=== PATIENT | female | born 1940 | race Caucasian/White ===

== ENCOUNTER → 2016-09-29 | Outpatient (CLI) | payer MEDICARE ==
[2014-06-15 08:53] VITALS: BP 179/74
--- NOTE | 2016-09-29 09:00 | RAD ---
DATE: 09/29/2016 EXAM: DIGITAL SCREEN BILAT W/CAD HISTORY: Screening COMPARISON: One year earlier This study was interpreted with the benefit of Computerized Aided Detection (CAD). FINDINGS: Breast Density: FATTY The Breast Parenchyma is primarily fatty replaced. Breast parenchyma level density A.. There has been little change in the appearance of the breasts compared to the previous exam IMPRESSION: Benign finding BI-RADS CATEGORY: 2 BENIGN FINDING(S) RECOMMENDED FOLLOW-UP: 12M 12 MONTH FOLLOW-UP PQRS compliance statement: Patient information was entered into a reminder system with a target due date 09/29/2017 for the next mammogram. Mammography is a sensitive method for finding small breast cancers, but it does not detect them all and is not a substitute for careful clinical examination. A negative mammogram does not negate a clinically suspicious finding and should not result in delay in biopsying a clinically suspicious abnormality. "Our facility is accredited by the [employer] Mammography Program."
== END | disposition home or self-care (01) ==
LOC: MAMMO 07:59
PROVIDERS: ATTEND Family Medicine
DX: Z12.31 Encounter for screening mammogram for malignant neoplasm of breast (principal)
CPT/HCPCS: G0202; 77067

== ENCOUNTER → 2017-10-03 | Outpatient (CLI) | payer MEDICARE | END | disposition home or self-care (01) | LOC: MAMMO 08:09 | DX: Z12.31 Encounter for screening mammogram for malignant neoplasm of breast (principal); I10 Essential (primary) hypertension | CPT/HCPCS: 77063; 77067 ==

== ENCOUNTER 2018-04-06 08:47 | Observation (INO) | payer MEDICARE ==
[~2018-04-06] VITALS: Ht 167.6 cm; Wt 76.2 kg
--- NOTE | 2018-04-06 09:36 | PHYS DOC ---
Past Medical History Past Medical History: Diabetes-Type II, Hypertension Past Surgical History: Hysterectomy Additional Information: nonsmoker Alcohol Use: None Drug Use: None Adult General Chief Complaint Chief Complaint: dizziness HPI HPI 77-year-old female presenting to the emergency department today when she woke up this morning around 5 AM and woke up with the symptoms that she veers to the left when she is walking. Last known well was when she went to bed last night. She denies weakness of the arms or legs slurred speech vision changes that will vision or facial asymmetry. Her symptoms come and go. They're worse when she walks and improved when she rests. Review of systems is negative for abdominal pain vomiting headache neck pain chest pain or shortness of breath. She reports falling a few weeks ago. She reports she injured her left side of her chest but reports this is improving. All other review of systems is negative unless otherwise noted in history of present illness. ED course: 77-year-old female presenting the emergency department today with vertigo. On arrival she is saturating well on room air. Pulse is within normal limits. Blood pressure is elevated. She reports not taking her blood pressure this morning. Normal neurologic exam. EKG head CT and blood work obtained. EKG obtained and reviewed by myself shows sinus tachycardia. ST segments congruent. Not suggestive of ACS. White blood cell count within normal limits. Chemistry panel unremarkable. Glucose within normal limits. Urine shows urinary tract infection. We will admit the patient. We'll give her IV antibiotics. Head CT is negative for acute pathology. I spoke to dr Manzano who accepts the pt for admission. basic bridge orders placed. Review of Systems Review of Systems SEE ABOVE. Current Medications Current Medications Current Medications Medications (Trade) Dose Ordered Sig/Valerie Start Time Stop Time Status Last Admin Dose Admin Ceftriaxone Sodium (Rocephin) 1 gm 1X ONCE 04/06/18 11:15 04/06/18 11:16 DC 04/06/18 11:20 1 GM Info (CONTRAST GIVEN -- Rx MONITORING) 1 each PRN DAILY PRN 04/06/18 10:15 04/08/18 10:14 Iohexol (Omnipaque 350 Mg/ml) 90 ml 1X ONCE 04/06/18 10:15 04/06/18 10:16 DC 04/06/18 10:37 90 ML Labetalol HCl (Normodyne Iv Push) 10 mg 1X ONCE 04/06/18 11:00 04/06/18 11:01 DC 04/06/18 11:20 10 MG Sodium Chloride 500 ml @ 500 mls/hr 1X ONCE 04/06/18 10:00 04/06/18 10:59 DC 04/06/18 10:00 500 MLS/HR Allergies Allergies Allergies Coded Allergies Type Severity Reaction Last Updated Verified No Known Drug Allergies 06/15/14 No Physical Exam Physical Exam SEE ABOVE Constitutional: Well developed, well nourished, no acute distress, non-toxic appearance. HENT: Normocephalic, atraumatic, bilateral external ears normal, oropharynx moist, no oral exudates, nose normal. Eyes: PERRLA, EOMI, conjunctiva normal, no discharge. [] Neck: Normal range of motion, no tenderness, supple, no stridor. Cardiovascular:Heart rate regular rhythm, no murmur [] Lungs & Thorax: Bilateral breath sounds clear to auscultation Abdomen: Bowel sounds normal, soft, no tenderness, no masses, no pulsatile masses. Skin: Warm, dry, no erythema, no rash. [] Back: No tenderness, no CVA tenderness. [] Extremities: No tenderness, no cyanosis, no clubbing, ROM intact, no edema. [] Neurologic: Mental status: Awake oriented and alert x3 Cranial nerves: Extraocular movements intact, eyebrows daiana bilaterally, smile symmetric, uvula elevation nl, shoulder shrug intact bilaterally, tongue protrusion normal no nystagmus on lateral or vertical gaze. DTRs: 2+ Sensation: equal and normal in all extremities Strength: 5/5 in upper and lower extremities bilaterally FTN wnl bilaterally. no dysdiadochokinesia. Psychologic: Affect normal, judgement normal, mood normal. [] Current Patient Data Vital Signs Vital Signs Date Time Temp Pulse Resp B/P (MAP) Pulse Ox O2 Delivery O2 Flow Rate FiO2 04/06/18 11:29 98 16 166/77 (106) 95 04/06/18 11:09 Room Air 04/06/18 08:58 97.8 97.8 Lab Values Laboratory Tests Test 04/06/18 09:10 04/06/18 09:14 04/06/18 09:50 Urine Collection Type Unknown Urine Color Yellow Urine Clarity Clear Urine pH 5.5 Urine Specific [place] 1.020 Urine Protein Negative mg/dL (NEG-TRACE) Urine Glucose (UA) Negative mg/dL (NEG) Urine Ketones (Stick) Negative mg/dL (NEG) Urine Blood Negative (NEG) Urine Nitrite Positive (NEG) Urine Bilirubin Negative (NEG) Urine Urobilinogen Dipstick 0.2 mg/dL (0.2 mg/dL) Urine Leukocyte Esterase Large (NEG) Urine RBC 0 /HPF (0-2) Urine WBC >40 /HPF (0-4) Urine Squamous Epithelial Cells Few /LPF Urine Bacteria Many /HPF (0-FEW) Glucose (Fingerstick) 176 mg/dL (70-99) H White Blood Count 8.9 x10^3/uL (4.0-11.0) Red Blood Count 4.20 x10^6/uL (3.50-5.40) Hemoglobin 12.7 g/dL (12.0-15.5) Hematocrit 38.7 % (36.0-47.0) Mean Corpuscular Volume 92 fL (79-100) Mean Corpuscular Hemoglobin 30 pg (25-35) Mean Corpuscular Hemoglobin Concent 33 g/dL (31-37) Red Cell Distribution Width 15.5 % (11.5-14.5) H Platelet Count 177 x10^3/uL (140-400) Neutrophils (%) (Auto) 72 % (31-73) Lymphocytes (%) (Auto) 21 % (24-48) L Monocytes (%) (Auto) 5 % (0-9) Eosinophils (%) (Auto) 1 % (0-3) Basophils (%) (Auto) 1 % (0-3) Neutrophils # (Auto) 6.4 x10^3uL (1.8-7.7) Lymphocytes # (Auto) 1.8 x10^3/uL (1.0-4.8) Monocytes # (Auto) 0.5 x10^3/uL (0.0-1.1) Eosinophils # (Auto) 0.1 x10^3/uL (0.0-0.7) Basophils # (Auto) 0.1 x10^3/uL (0.0-0.2) Sodium Level 137 mmol/L (136-145) Potassium Level 4.1 mmol/L (3.5-5.1) Chloride Level 98 mmol/L (98-107) Carbon Dioxide Level 24 mmol/L (21-32) Anion Gap 15 (6-14) H Blood Urea Nitrogen 16 mg/dL (7-20) Creatinine 0.8 mg/dL (0.6-1.0) Estimated GFR (Cockcroft-Gault) 69.4 BUN/Creatinine Ratio 20 (6-20) Glucose Level 180 mg/dL (70-99) H Calcium Level 9.9 mg/dL (8.5-10.1) Total Bilirubin 0.4 mg/dL (0.2-1.0) Aspartate Amino Transferase (AST) 55 U/L (15-37) H Alanine Aminotransferase (ALT) 61 U/L (14-59) H Alkaline Phosphatase 115 U/L (46-116) Total Protein 7.1 g/dL (6.4-8.2) Albumin 3.6 g/dL (3.4-5.0) Albumin/Globulin Ratio 1.0 (1.0-1.7) Laboratory Tests 04/06/18 09:50 Laboratory Tests 04/06/18 09:50 EKG EKG [] Radiology/Procedures Radiology/Procedures [] Course & Med Decision Making Course & Med Decision Making Pertinent Labs and Imaging studies reviewed. (See chart for details) [] Dragon Disclaimer Dragon Disclaimer This electronic medical record was generated, in whole or in part, using a voice recognition dictation system. Departure Departure Impression: Primary Impression: Vertigo Disposition: HOME, SELF-CARE Condition: STABLE Referrals: JUAN BROWN MD (PCP) ZULEMA TOMLINSON MD Apr 06, 2018 09:36
[2018-04-06 09:55] LABS: BILIRUBIN,URINE NEGATIVE (NEG); CLARITY,URINE CLEAR; COLOR,URINE YELLOW; NITRITE,URINE POSITIVE (NEG); PH,URINE 5.5; PROTEIN,URINE NEGATIVE (NEG-TRACE); UROBILINOGEN,URINE 0.2 mg/dL (0.2 mg/dL)
[2018-04-06] MEDS ORDERED: IV NORMAL SALINE 500ML BAG 500 ML IV ONE (10:00)
[2018-04-06 10:07] LABS: BACTERIA,URINE MANY /HPF (0-FEW); RBC,URINE 0 /HPF (0-2); SQUAMOUS EPITHELIAL CELL,UR FEW /LPF; WBC,URINE >40 /HPF (0-4)
[2018-04-06] MEDS ORDERED: IOHEXOL 350 MG/ML 100 ML VIAL. IV ONE (10:15)
[2018-04-06] MEDS ORDERED: CONTRAST GIVEN. MC PRN (10:15)
[2018-04-06 10:19] LABS: BASO # 0.1 x10^3/uL (0.0-0.2); BASO % 1 % (0-3); EOS # 0.1 x10^3/uL (0.0-0.7); EOS % 1 % (0-3); HEMATOCRIT 38.7 % (36.0-47.0); HEMOGLOBIN 12.7 g/dL (12.0-15.5); LYMPH # 1.8 x10^3/uL (1.0-4.8); LYMPH % 21 % (24-48); MEAN CORPUSCULAR HEMOGLOBIN 30 pg (25-35); MEAN CORPUSCULAR HGB CONC 33 g/dL (31-37); MEAN CORPUSCULAR VOLUME 92 fL (79-100); MONO # 0.5 x10^3/uL (0.0-1.1); MONO % 5 % (0-9); NEUT # 6.4 x10^3uL (1.8-7.7); NEUT % 72 % (31-73); PLATELET COUNT 177 x10^3/uL (140-400); RED CELL DISTRIBUTION WIDTH 15.5 % (11.5-14.5); WHITE BLOOD COUNT 8.9 x10^3/uL (4.0-11.0)
[2018-04-06 10:26] LABS: CALCIUM 9.9 mg/dL (8.5-10.1); CREATININE 0.8 mg/dL (0.6-1.0); GFR 69.4; POTASSIUM 4.1 mmol/L (3.5-5.1)
[2018-04-06 10:31] LABS: ALBUMIN 3.6 g/dL (3.4-5.0); TOTAL BILIRUBIN 0.4 mg/dL (0.2-1.0); TOTAL PROTEIN 7.1 g/dL (6.4-8.2)
--- NOTE | 2018-04-06 10:51 | EKG ---
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
[2018-04-06] MEDS ORDERED: LABETALOL 20 MG/4 ML DISP.SYRIN. IVP ONE (11:00)
[2018-04-06] MEDS ORDERED: cefTRIAXone IV Push 1 GM VIAL. IVP ONE (11:15)
--- NOTE | 2018-04-06 11:29 | RAD ---
CT HEAD INDICATION: DIZZY, UNSTEADY, LEANING TO ONE SIDE COMPARISON: None Available. Exposure: One or more of the following individualized dose reduction techniques were utilized for this examination: 1. Automated exposure control 2. Adjustment of the mA and/or kV according to patient size 3. Use of iterative reconstruction technique TECHNIQUE: 5 mm contiguous axial images were obtained from the skull base to the vertex in both bone and soft tissue algorithm. FINDINGS: No abnormal attenuation within the brain parenchyma. No evidence of acute intracranial hemorrhage. No extra-axial fluid collections. No mass effect or midline shift. Ventricular size is appropriate. Basal cisterns are patent. No fractures identified.Phillips-white differentiation is preserved.Globes and orbits are within normal limits. Moderate mucosal thickening left maxillary sinus. IMPRESSION: 1. No acute intracranial findings. 2. Moderate mucosal thickening left maxillary sinus. Electronically signed by: Puma Caldwell MD (04/06/2018 11:25 AM) [id number]
--- NOTE | 2018-04-06 11:39 | RAD ---
CTA of the head and neck with contrast, 04/06/2018: HISTORY: Dizziness, unsteadiness Multidetector CT imaging was performed following an IV bolus injection of iodinated contrast material. Multiplanar reconstructions were produced including MIP images and 3-D volume rendered reconstructions. The right common carotid artery is widely patent. There is moderate calcific plaquing at the right carotid bifurcation with approximately 50 percent diameter narrowing of the right internal carotid artery origin. The right internal carotid artery in the upper neck and at the skull base is widely patent. There is calcific plaquing involving its cavernous segment without evidence of high-grade stenosis. The right anterior cerebral and middle cerebral arteries and their major branches are unremarkable. The left common carotid artery is widely patent. There is moderate calcific plaquing at the left carotid bifurcation with approximate 60 percent diameter narrowing at its origin. There is mild kinking of the proximal left internal carotid artery just superior to this level.. There is moderate calcific plaquing involving its cavernous segment without evidence of high-grade stenosis. The left middle cerebral and anterior cerebral arteries and their major branches are unremarkable. The proximal left vertebral artery is partially obscured by artifacts arising from dense vascular contrast at the thoracic inlet. Both vertebral arteries in the neck are widely patent with mild dominance of the right vertebral artery. There is mild calcific plaquing in the distal right vertebral artery. The basilar artery is unremarkable. The posterior cerebral arteries show no abnormality. Incidental note is made of moderate mucosal thickening and free fluid in the left maxillary sinus. There is moderate mucosal thickening in the left sphenoid sinus IMPRESSION: 1. Moderate calcific plaquing at both carotid bifurcations with approximately 60 percent diameter narrowing of the left internal carotid artery origin and 50 percent diameter narrowing of the right internal carotid artery origin. 2. Calcific plaquing involving the cavernous segments of the distal internal carotid arteries without evidence of high-grade stenosis. 3. No evidence of occlusion or high-grade stenosis of the major intracranial arteries. 4. Left maxillary and sphenoid sinusitis. PQRS Compliance Statement: One or more of the following individualized dose reduction techniques were utilized for this examination: 1. Automated exposure control 2. Adjustment of the mA and/or kV according to patient size 3. Use of iterative reconstruction technique Electronically signed by: Parvez Goins MD (04/06/2018 11:35 AM) [facility]
[2018-04-06] MEDS ORDERED: MORPHINE SULFATE 4 MG/ML VIAL. IV PRN (11:45)
[2018-04-06] MEDS ORDERED: ONDANSETRON PF 4 MG/2 ML VIAL. IV PRN (11:45)
--- NOTE | 2018-04-06 13:43 | PDOC2 ---
NEUROLOGY CONSULT Date of Admission Date of Admission DATE: 04/06/18 TIME: 13:36 Reason for Consult Reason for Consult: Dizziness Referring Physician Referring Physician: Dr. Manzano PCP: Dr. Barahona Source Source: Caregiver, Chart review, Patient History of Present Illness History of Present Illness The patient is a 77-year-old right-handed female who woke up about 5 AM and noticed that she was veering to the left when she walked. There was no vertigo and she knows the term because she had an inner ear infection about 20 years ago with true vertigo. She does have chronic tinnitus and hearing loss. There is no diplopia, dysphagia, dysarthria, numbness, weakness, and she has not figured out any inciting or mitigating features. Past Medical History Cardiovascular: HTN GI: GERD ENT: Other (inner ear infection 20 years ago) Endocrine: Diabetes Family History Family History: Cancer Social History Social History , no tobacco or alcohol Current Medications Current Medications Current Medications Sodium Chloride 500 ml @ 500 mls/hr 1X ONCE IV Last administered on at 10:00; Start 04/06/18 at 10:00; Stop 04/06/18 at 10:59; Status DC Iohexol (Omnipaque 350 Mg/ml) 90 ml 1X ONCE IV Last administered on 04/06/18at 10:37; Start 04/06/18 at 10:15; Stop 04/06/18 at 10:16; Status DC Info (CONTRAST GIVEN -- Rx MONITORING) 1 each PRN DAILY PRN MC SEE COMMENTS; Start 04/06/18 at 10:15; Stop 04/08/18 at 10:14 Labetalol HCl (Normodyne Iv Push) 10 mg 1X ONCE IVP Last administered on at 11:20; Start 04/06/18 at 11:00; Stop 04/06/18 at 11:01; Status DC Ceftriaxone Sodium (Rocephin) 1 gm 1X ONCE IVP Last administered on 04/06/18at 11:20; Start 04/06/18 at 11:15; Stop 04/06/18 at 11:16; Status DC Ondansetron HCl (Zofran) 4 mg PRN Q8HRS PRN IV NAUSEA/VOMITING; Start 04/06/18 at 11:45; Stop 04/07/18 at 11:44 Morphine Sulfate (Morphine Sulfate) 2 mg PRN Q2HR PRN IV PAIN Last administered on 04/06/18at 13:19; Start 04/06/18 at 11:45; Stop 04/07/18 at 11:44 Allergies Allergies: Coded Allergies: No Known Drug Allergies (Unverified , 06/15/14) ROS Review of System Negative for fever, chills, weight loss, shortness of breath, chest pain, indigestion, hematochezia, melena, and dysuria. Full 14-point review of systems is negative. Physical Exam Physical Examination General: Well-developed, well-nourished white female in no acute distress HEENT: Normocephalic and�atraumatic. Tympanic membranes clear.�Temporal arteries� pulsatile and nontender. Neck: Supple without bruit, no meningismus� Musculoskeletal: Stability:�see neurologic. Gait exam:�see neurologic. Tone:�see neurologic.� Strength:�see neurologic.� Neurological: Mental Status:�intact, orientation, memory, attention span/concentration, language, fund of knowledge normal. Cranial Nerves:�Pupils equal and reactive to light, extraocular movements are�intact, visual coffey are full to confrontation. Facial sensation is normal. There is no facial asymmetry. Vestibulo-ocular reflex is intact. Palate elevates and tongue protrudes in midline. All other cranial related problems are negative except as mentioned before.�Reflexes:�2+ and symmetric with flexor plantar responses. Motor:�5/5 strength with normal tone and bulk. Coordination:�Finger-nose finger and heel-to -delacruz testing are normal. Rapid alternating movements and fine finger movements are intact. Gait:�Unsteady, does tend to fall to the left. Sensory:�Normal pinprick, vibration, light touch, proprioception.� Vitals VITALS Vital Signs Date Time Temp Pulse Resp B/P (MAP) Pulse Ox O2 Delivery O2 Flow Rate FiO2 04/06/18 13:19 16 98 Room Air 04/06/18 11:20 110 173/79 04/06/18 08:58 97.8 97.8 Labs Labs Laboratory Tests Test 04/06/18 09:10 04/06/18 09:14 04/06/18 09:50 Urine Collection Type Unknown Urine Color Yellow Urine Clarity Clear Urine pH 5.5 Urine Specific [place] 1.020 Urine Protein Negative mg/dL (NEG-TRACE) Urine Glucose (UA) Negative mg/dL (NEG) Urine Ketones (Stick) Negative mg/dL (NEG) Urine Blood Negative (NEG) Urine Nitrite Positive (NEG) Urine Bilirubin Negative (NEG) Urine Urobilinogen Dipstick 0.2 mg/dL (0.2 mg/dL) Urine Leukocyte Esterase Large (NEG) Urine RBC 0 /HPF (0-2) Urine WBC >40 /HPF (0-4) Urine Squamous Epithelial Cells Few /LPF Urine Bacteria Many /HPF (0-FEW) Glucose (Fingerstick) 176 mg/dL (70-99) White Blood Count 8.9 x10^3/uL (4.0-11.0) Red Blood Count 4.20 x10^6/uL (3.50-5.40) Hemoglobin 12.7 g/dL (12.0-15.5) Hematocrit 38.7 % (36.0-47.0) Mean Corpuscular Volume 92 fL (79-100) Mean Corpuscular Hemoglobin 30 pg (25-35) Mean Corpuscular Hemoglobin Concent 33 g/dL (31-37) Red Cell Distribution Width 15.5 % (11.5-14.5) Platelet Count 177 x10^3/uL (140-400) Neutrophils (%) (Auto) 72 % (31-73) Lymphocytes (%) (Auto) 21 % (24-48) Monocytes (%) (Auto) 5 % (0-9) Eosinophils (%) (Auto) 1 % (0-3) Basophils (%) (Auto) 1 % (0-3) Neutrophils # (Auto) 6.4 x10^3uL (1.8-7.7) Lymphocytes # (Auto) 1.8 x10^3/uL (1.0-4.8) Monocytes # (Auto) 0.5 x10^3/uL (0.0-1.1) Eosinophils # (Auto) 0.1 x10^3/uL (0.0-0.7) Basophils # (Auto) 0.1 x10^3/uL (0.0-0.2) Sodium Level 137 mmol/L (136-145) Potassium Level 4.1 mmol/L (3.5-5.1) Chloride Level 98 mmol/L (98-107) Carbon Dioxide Level 24 mmol/L (21-32) Anion Gap 15 (6-14) Blood Urea Nitrogen 16 mg/dL (7-20) Creatinine 0.8 mg/dL (0.6-1.0) Estimated GFR (Cockcroft-Gault) 69.4 BUN/Creatinine Ratio 20 (6-20) Glucose Level 180 mg/dL (70-99) Calcium Level 9.9 mg/dL (8.5-10.1) Total Bilirubin 0.4 mg/dL (0.2-1.0) Aspartate Amino Transf (AST/SGOT) 55 U/L (15-37) Alanine Aminotransferase (ALT/SGPT) 61 U/L (14-59) Alkaline Phosphatase 115 U/L (46-116) Total Protein 7.1 g/dL (6.4-8.2) Albumin 3.6 g/dL (3.4-5.0) Albumin/Globulin Ratio 1.0 (1.0-1.7) Laboratory Tests Test 04/06/18 09:10 04/06/18 09:14 04/06/18 09:50 Urine Collection Type Unknown Urine Color Yellow Urine Clarity Clear Urine pH 5.5 Urine Specific [place] 1.020 Urine Protein Negative mg/dL (NEG-TRACE) Urine Glucose (UA) Negative mg/dL (NEG) Urine Ketones (Stick) Negative mg/dL (NEG) Urine Blood Negative (NEG) Urine Nitrite Positive (NEG) Urine Bilirubin Negative (NEG) Urine Urobilinogen Dipstick 0.2 mg/dL (0.2 mg/dL) Urine Leukocyte Esterase Large (NEG) Urine RBC 0 /HPF (0-2) Urine WBC >40 /HPF (0-4) Urine Squamous Epithelial Cells Few /LPF Urine Bacteria Many /HPF (0-FEW) Glucose (Fingerstick) 176 mg/dL (70-99) White Blood Count 8.9 x10^3/uL (4.0-11.0) Red Blood Count 4.20 x10^6/uL (3.50-5.40) Hemoglobin 12.7 g/dL (12.0-15.5) Hematocrit 38.7 % (36.0-47.0) Mean Corpuscular Volume 92 fL (79-100) Mean Corpuscular Hemoglobin 30 pg (25-35) Mean Corpuscular Hemoglobin Concent 33 g/dL (31-37) Red Cell Distribution Width 15.5 % (11.5-14.5) Platelet Count 177 x10^3/uL (140-400) Neutrophils (%) (Auto) 72 % (31-73) Lymphocytes (%) (Auto) 21 % (24-48) Monocytes (%) (Auto) 5 % (0-9) Eosinophils (%) (Auto) 1 % (0-3) Basophils (%) (Auto) 1 % (0-3) Neutrophils # (Auto) 6.4 x10^3uL (1.8-7.7) Lymphocytes # (Auto) 1.8 x10^3/uL (1.0-4.8) Monocytes # (Auto) 0.5 x10^3/uL (0.0-1.1) Eosinophils # (Auto) 0.1 x10^3/uL (0.0-0.7) Basophils # (Auto) 0.1 x10^3/uL (0.0-0.2) Sodium Level 137 mmol/L (136-145) Potassium Level 4.1 mmol/L (3.5-5.1) Chloride Level 98 mmol/L (98-107) Carbon Dioxide Level 24 mmol/L (21-32) Anion Gap 15 (6-14) Blood Urea Nitrogen 16 mg/dL (7-20) Creatinine 0.8 mg/dL (0.6-1.0) Estimated GFR (Cockcroft-Gault) 69.4 BUN/Creatinine Ratio 20 (6-20) Glucose Level 180 mg/dL (70-99) Calcium Level 9.9 mg/dL (8.5-10.1) Total Bilirubin 0.4 mg/dL (0.2-1.0) Aspartate Amino Transf (AST/SGOT) 55 U/L (15-37) Alanine Aminotransferase (ALT/SGPT) 61 U/L (14-59) Alkaline Phosphatase 115 U/L (46-116) Total Protein 7.1 g/dL (6.4-8.2) Albumin 3.6 g/dL (3.4-5.0) Albumin/Globulin Ratio 1.0 (1.0-1.7) Images Images CT HEAD No abnormal attenuation within the brain parenchyma. No evidence of acute intracranial hemorrhage. No extra-axial fluid collections. No mass effect or midline shift. Ventricular size is appropriate. Basal cisterns are patent. No fractures identified.Phillips-white differentiation is preserved.Globes and orbits are within normal limits. Moderate mucosal thickening left maxillary sinus. IMPRESSION: 1. No acute intracranial findings. 2. Moderate mucosal thickening left maxillary sinus. CTA of the head and neck with contrast, 04/06/2018: HISTORY: Dizziness, unsteadiness Multidetector CT imaging was performed following an IV bolus injection of iodinated contrast material. Multiplanar reconstructions were produced including MIP images and 3-D volume rendered reconstructions. The right common carotid artery is widely patent. There is moderate calcific plaquing at the right carotid bifurcation with approximately 50 percent diameter narrowing of the right internal carotid artery origin. The right internal carotid artery in the upper neck and at the skull base is widely patent. There is calcific plaquing involving its cavernous segment without evidence of high-grade stenosis. The right anterior cerebral and middle cerebral arteries and their major branches are unremarkable. The left common carotid artery is widely patent. There is moderate calcific plaquing at the left carotid bifurcation with approximate 60 percent diameter narrowing at its origin. There is mild kinking of the proximal left internal carotid artery just superior to this level.. There is moderate calcific plaquing involving its cavernous segment without evidence of high-grade stenosis. The left middle cerebral and anterior cerebral arteries and their major branches are unremarkable. The proximal left vertebral artery is partially obscured by artifacts arising from dense vascular contrast at the thoracic inlet. Both vertebral arteries in the neck are widely patent with mild dominance of the right vertebral artery. There is mild calcific plaquing in the distal right vertebral artery. The basilar artery is unremarkable. The posterior cerebral arteries show no abnormality. Incidental note is made of moderate mucosal thickening and free fluid in the left maxillary sinus. There is moderate mucosal thickening in the left sphenoid sinus IMPRESSION: 1. Moderate calcific plaquing at both carotid bifurcations with approximately 60 percent diameter narrowing of the left internal carotid artery origin and 50 percent diameter narrowing of the right internal carotid artery origin. 2. Calcific plaquing involving the cavernous segments of the distal internal carotid arteries without evidence of high-grade stenosis. 3. No evidence of occlusion or high-grade stenosis of the major intracranial arteries. 4. Left maxillary and sphenoid sinusitis. Assessment/Plan Assessment/Plan Impression: She is veering to the left, examination shows no particular vestibular findings , but this is still most likely peripheral vestibular dysfunction as I find no evidence of any brainstem disease either. Patient will need an MRI to sort out whether this is a stroke or not. She already had CT angiogram of the head and neck as well as head CT as reviewed above. Wake up symptoms, normal exam, not an alteplase candidate. Recommendations: MRI of the brain Check lipids Echocardiogram Rehabilitation modalities. Daily aspirin. She is already on aspirin at home, we will give her 325 mg for now. Further recommendations depending on the results of the workup. When necessary meclizine. Thank you for letting me help with the patient's care MANNY PETERSEN MD Apr 06, 2018 13:43
[2018-04-06] MEDS ORDERED: ASPIRIN RECTAL 300 MG SUPP. PR PRN (13:45)
[2018-04-06] MEDS ORDERED: MECLIZINE HCL 12.5 MG TABLET. PO PRN ×2 (13:45→16:45)
[2018-04-06] MEDS ORDERED: ACETAMINOPHEN 325 MG TABLET. PO PRN (13:45)
[2018-04-06] MEDS ORDERED: ACETAMINOPHEN 650 MG SUPP.RECT. PR PRN (13:45)
[2018-04-06] MEDS ORDERED: METF500T16 PO (14:00)
[2018-04-06] MEDS ORDERED: LOVA40TA2 PO (14:06)
[2018-04-06] MEDS ORDERED: GLIP2.5T4 PO (14:06)
[2018-04-06] MEDS ORDERED: HYDR12.575 PO (14:06)
[2018-04-06] MEDS ORDERED: METO25TA4 PO (14:06)
[2018-04-06] MEDS ORDERED: LOSA-73 PO (14:06)
[2018-04-06] MEDS ORDERED: ALLO300T PO (14:06)
[2018-04-06] MEDS ORDERED: ASPI-630 PO (14:06)
[2018-04-06] MEDS ORDERED: VITA1CAP PO (14:06)
[2018-04-06] MEDS ORDERED: OMEP20CA10 PO (14:06)
[2018-04-06 15:00] VITALS: BP 143/66
--- NOTE | 2018-04-06 15:23 | RAD ---
MRI Brain without contrast History: Left facial droop, dizziness Technique: Multiplanar, multisequential noncontrast MR imaging was performed of the brain. Comparison: None Findings: There is no evidence of recent infarct or cytotoxic edema. Ventricular size is proportionate to sulcal spaces, mild generalized supratentorial involutional change very slightly greater of the parietal lobes.There is no significant midline shift, intraaxial mass effect, or focal abnormal extra-axial fluid collection. There is minimal T2 and FLAIR hyperintense signal abnormality of the supratentorial periventricular white matter bilaterally, couple of tiny foci of the deep white matter of the right frontal lobe. There is preservation of the major intracranial flow-voids at the skull base. The mastoid air cells are aerated. The cerebellar tonsils are normal in location. There is no significant abnormality of the pineal gland. There is partially empty sella. There is moderate sized air-fluid level of the left maxillary sinus with adjacent moderate to severe left maxillary sinus mucosal thickening, also near complete opacification of the left sphenoid sinus. There is very minimal patchy ethmoid air cell mucosal thickening. There is slightly disconjugate gaze. There is preserved marrow signal of the clivus. Small focus of nonexpansile marrow signal change right parietal calvarium may be a small hemangioma. Impression: 1. There is no evidence of recent infarct. Minimal T2 and FLAIR hyperintense signal abnormality of the supratentorial parenchyma is more commonly due to chronic microvascular ischemic disease in a patient this age. There is mild supratentorial involutional change somewhat greater of the parietal lobes. 2. There is air-fluid level in the left maxillary sinus which may be due to acute sinusitis. Electronically signed by: Randolph Burks MD (04/06/2018 3:19 PM) [id number]
--- NOTE | 2018-04-06 15:58 | PDOC1 ---
History and Physical Date of Admission Date of Admission 04/06/2018 Identification/Chief Complaint Problems: (1) Vertigo Source Source: Chart review History of Present Illness History of Present Illness Agent is a 77-year-old female with past medical history of hypertension diabetes dyslipidemia who was in her usual state of health until this morning when she woke up and felt like she was leaning to the right and very unsteady on her feet. The patient denies any ringing in the ears sensation of fullness either no headache no sensation of the room spinning either. The patient denies slurred speech no hemiparesis and no paresthesias were noted. No recent changes to her medications either nor increased to her diabetes medications. The patient denies recent illnesses no viral infections have been reported. The patient denies emesis associated with the symptoms due to the sudden onset of her symptoms her family members got concerned and brought her to the emergency department for further evaluation and treatment Past Medical History Cardiovascular: HTN GI: GERD ENT: Other (inner ear infection 20 years ago) Endocrine: Diabetes Current Problem List Problem List Problems Medical Problems: (1) Vertigo Status: Acute Current Medications Current Medications Current Medications Medications (Trade) Dose Ordered Sig/Valerie Start Time Stop Time Status Last Admin Dose Admin Acetaminophen (Tylenol Supp) 650 mg PRN Q4HRS PRN 04/06/18 13:45 Acetaminophen (Tylenol) 650 mg PRN Q6HRS PRN 04/06/18 13:45 Aspirin (Aspirin) 300 mg PRN DAILY PRN 04/06/18 13:45 Aspirin (Ecotrin) 325 mg DAILYWBKFT 04/07/18 08:00 Ceftriaxone Sodium (Rocephin) 1 gm 1X ONCE 04/06/18 11:15 04/06/18 11:16 DC 04/06/18 11:20 1 GM Info (CONTRAST GIVEN -- Rx MONITORING) 1 each PRN DAILY PRN 04/06/18 10:15 04/08/18 10:14 Iohexol (Omnipaque 350 Mg/ml) 90 ml 1X ONCE 04/06/18 10:15 04/06/18 10:16 DC 04/06/18 10:37 90 ML Labetalol HCl (Normodyne Iv Push) 10 mg 1X ONCE 04/06/18 11:00 04/06/18 11:01 DC 04/06/18 11:20 10 MG Meclizine HCl (Antivert) 12.5 mg PRN Q6HRS PRN 04/06/18 13:45 Morphine Sulfate (Morphine Sulfate) 2 mg PRN Q2HR PRN 04/06/18 11:45 04/07/18 11:44 04/06/18 13:19 2 MG Ondansetron HCl (Zofran) 4 mg PRN Q8HRS PRN 04/06/18 11:45 04/07/18 11:44 Sodium Chloride 500 ml @ 500 mls/hr 1X ONCE 04/06/18 10:00 04/06/18 10:59 DC 04/06/18 10:00 500 MLS/HR Allergies Allergies Allergies Coded Allergies Type Severity Reaction Last Updated Verified No Known Drug Allergies 06/15/14 No ROS Review of System CONSTITUTIONAL: No fever or chills EYES: No recent changes SKIN: No rash or itching CARDIOVASCULAR: No chest pain, syncope, palpitations, or edema RESPIRATORY: No SOB or cough GASTROINTESTINAL: No nausea, vomiting or abdominal pain NEUROLOGICAL: No headaches or weakness ENDOCRINE: No cold or heat intolerance GENITOURINARY: No urgency or frequency of urination MUSCULOSKELETAL: No back pain or joint pain LYMPHATICS: No enlarged lymph nodes PSYCHIATRIC: No anxiety or depression Physical Exam Physical Exam GEN.: No apparent distress. Alert and oriented. HEENT: Head is normocephalic, atraumatic NECK: Supple. LUNGS: Clear to auscultation. HEART: RRR, S1, S2 present. +murmur Peripheral pulses intact ABDOMEN: Soft, nontender. Positive bowel sounds. EXTREMITIES: Without any cyanosis. NEUROLOGIC: Normal speech, normal tone cn 2 to 12 intact no motor or sensory deficits. PSYCHIATRIC: Normal affect, normal mood. SKIN: No ulcerations Vitals Vitals Vital Signs Date Time Temp Pulse Resp B/P (MAP) Pulse Ox O2 Delivery O2 Flow Rate FiO2 04/06/18 15:00 97.8 128 16 143/66 (91) 95 Room Air 97.8 Labs Labs Laboratory Tests Test 04/06/18 09:10 04/06/18 09:14 04/06/18 09:50 Urine Collection Type Unknown Urine Color Yellow Urine Clarity Clear Urine pH 5.5 Urine Specific [place] 1.020 Urine Protein Negative mg/dL (NEG-TRACE) Urine Glucose (UA) Negative mg/dL (NEG) Urine Ketones (Stick) Negative mg/dL (NEG) Urine Blood Negative (NEG) Urine Nitrite Positive (NEG) Urine Bilirubin Negative (NEG) Urine Urobilinogen Dipstick 0.2 mg/dL (0.2 mg/dL) Urine Leukocyte Esterase Large (NEG) Urine RBC 0 /HPF (0-2) Urine WBC >40 /HPF (0-4) Urine Squamous Epithelial Cells Few /LPF Urine Bacteria Many /HPF (0-FEW) Glucose (Fingerstick) 176 mg/dL (70-99) White Blood Count 8.9 x10^3/uL (4.0-11.0) Red Blood Count 4.20 x10^6/uL (3.50-5.40) Hemoglobin 12.7 g/dL (12.0-15.5) Hematocrit 38.7 % (36.0-47.0) Mean Corpuscular Volume 92 fL (79-100) Mean Corpuscular Hemoglobin 30 pg (25-35) Mean Corpuscular Hemoglobin Concent 33 g/dL (31-37) Red Cell Distribution Width 15.5 % (11.5-14.5) Platelet Count 177 x10^3/uL (140-400) Neutrophils (%) (Auto) 72 % (31-73) Lymphocytes (%) (Auto) 21 % (24-48) Monocytes (%) (Auto) 5 % (0-9) Eosinophils (%) (Auto) 1 % (0-3) Basophils (%) (Auto) 1 % (0-3) Neutrophils # (Auto) 6.4 x10^3uL (1.8-7.7) Lymphocytes # (Auto) 1.8 x10^3/uL (1.0-4.8) Monocytes # (Auto) 0.5 x10^3/uL (0.0-1.1) Eosinophils # (Auto) 0.1 x10^3/uL (0.0-0.7) Basophils # (Auto) 0.1 x10^3/uL (0.0-0.2) Sodium Level 137 mmol/L (136-145) Potassium Level 4.1 mmol/L (3.5-5.1) Chloride Level 98 mmol/L (98-107) Carbon Dioxide Level 24 mmol/L (21-32) Anion Gap 15 (6-14) Blood Urea Nitrogen 16 mg/dL (7-20) Creatinine 0.8 mg/dL (0.6-1.0) Estimated GFR (Cockcroft-Gault) 69.4 BUN/Creatinine Ratio 20 (6-20) Glucose Level 180 mg/dL (70-99) Calcium Level 9.9 mg/dL (8.5-10.1) Total Bilirubin 0.4 mg/dL (0.2-1.0) Aspartate Amino Transf (AST/SGOT) 55 U/L (15-37) Alanine Aminotransferase (ALT/SGPT) 61 U/L (14-59) Alkaline Phosphatase 115 U/L (46-116) Total Protein 7.1 g/dL (6.4-8.2) Albumin 3.6 g/dL (3.4-5.0) Albumin/Globulin Ratio 1.0 (1.0-1.7) Laboratory Tests Test 04/06/18 09:10 04/06/18 09:14 04/06/18 09:50 Urine Collection Type Unknown Urine Color Yellow Urine Clarity Clear Urine pH 5.5 Urine Specific [place] 1.020 Urine Protein Negative mg/dL (NEG-TRACE) Urine Glucose (UA) Negative mg/dL (NEG) Urine Ketones (Stick) Negative mg/dL (NEG) Urine Blood Negative (NEG) Urine Nitrite Positive (NEG) Urine Bilirubin Negative (NEG) Urine Urobilinogen Dipstick 0.2 mg/dL (0.2 mg/dL) Urine Leukocyte Esterase Large (NEG) Urine RBC 0 /HPF (0-2) Urine WBC >40 /HPF (0-4) Urine Squamous Epithelial Cells Few /LPF Urine Bacteria Many /HPF (0-FEW) Glucose (Fingerstick) 176 mg/dL (70-99) White Blood Count 8.9 x10^3/uL (4.0-11.0) Red Blood Count 4.20 x10^6/uL (3.50-5.40) Hemoglobin 12.7 g/dL (12.0-15.5) Hematocrit 38.7 % (36.0-47.0) Mean Corpuscular Volume 92 fL (79-100) Mean Corpuscular Hemoglobin 30 pg (25-35) Mean Corpuscular Hemoglobin Concent 33 g/dL (31-37) Red Cell Distribution Width 15.5 % (11.5-14.5) Platelet Count 177 x10^3/uL (140-400) Neutrophils (%) (Auto) 72 % (31-73) Lymphocytes (%) (Auto) 21 % (24-48) Monocytes (%) (Auto) 5 % (0-9) Eosinophils (%) (Auto) 1 % (0-3) Basophils (%) (Auto) 1 % (0-3) Neutrophils # (Auto) 6.4 x10^3uL (1.8-7.7) Lymphocytes # (Auto) 1.8 x10^3/uL (1.0-4.8) Monocytes # (Auto) 0.5 x10^3/uL (0.0-1.1) Eosinophils # (Auto) 0.1 x10^3/uL (0.0-0.7) Basophils # (Auto) 0.1 x10^3/uL (0.0-0.2) Sodium Level 137 mmol/L (136-145) Potassium Level 4.1 mmol/L (3.5-5.1) Chloride Level 98 mmol/L (98-107) Carbon Dioxide Level 24 mmol/L (21-32) Anion Gap 15 (6-14) Blood Urea Nitrogen 16 mg/dL (7-20) Creatinine 0.8 mg/dL (0.6-1.0) Estimated GFR (Cockcroft-Gault) 69.4 BUN/Creatinine Ratio 20 (6-20) Glucose Level 180 mg/dL (70-99) Calcium Level 9.9 mg/dL (8.5-10.1) Total Bilirubin 0.4 mg/dL (0.2-1.0) Aspartate Amino Transf (AST/SGOT) 55 U/L (15-37) Alanine Aminotransferase (ALT/SGPT) 61 U/L (14-59) Alkaline Phosphatase 115 U/L (46-116) Total Protein 7.1 g/dL (6.4-8.2) Albumin 3.6 g/dL (3.4-5.0) Albumin/Globulin Ratio 1.0 (1.0-1.7) VTE Prophylaxis Ordered VTE Prophylaxis Devices: Yes VTE Pharmacological Prophylaxi: Yes Assessment/Plan Assessment/Plan Impression #1 vestibular neuronitis. 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 Patient has been started on Rocephin will follow the results of culture patient has been seen by neurology and we're waiting for MRI results Further recommendations based on the clinical course Home medications If negative workup may discharge in the a.m. SUSI VALDOVINOS MD Apr 06, 2018 15:58
[2018-04-06] MEDS: PANTOPRAZOLE 40 MG TABLET.DR. PO SCH (16:15)
[2018-04-06] MEDS: ALLOPURINOL 300 MG TABLET. PO SCH (16:15)
[2018-04-06] MEDS: LOSARTAN POTASSIUM 50 MG TABLET. PO SCH (16:15)
[2018-04-06] MEDS: hydroCHLOROthiazide 12.5 MG CAPSULE PO SCH (16:15)
[2018-04-06] MEDS: VITAMIN B COMPLEX TABLET. PO SCH (16:15)
[2018-04-06] MEDS: IV RINGERS,LACTATED 1000ML 1,000 ML IV SCH (16:48)
--- NOTE | 2018-04-06 17:49 | CARD ---
MR#: [id number] Date of Study: 04/06/2018 Ordering Physician: MANNY PETERSEN, Referring Physician: SUSI VALDOVINOS, Tech: Lydia Chavarria APPROVED REPORT EXAM: Two-dimensional and M-mode echocardiogram with Doppler and color Doppler. Other Information Quality : FairHR: 129bpm INDICATION CVA/TIA 2D DIMENSIONS RVDd3.2 (2.9-3.5cm)Left Atrium(2D)3.4 (1.6-4.0cm) IVSd1.2 (0.7-1.1cm)Aortic Root(2D)2.6 (2.0-3.7cm) LVDd5.2 (3.9-5.9cm)LVOT Diameter2.0 (1.8-2.4cm) PWd1.1 (0.7-1.1cm)LVDs2.2 (2.5-4.0cm) FS (%) 57.2 %SV115.3 ml LVEF(%)87.1 (>50%) Aortic Valve AoV Peak Manjeet.185.9cm/sAoV VTI24.6cm AO Peak GR.13.8mmHgLVOT Peak Manjeet.148.8cm/s AO Mean GR.8mmHgAVA (VMAX)2.41cm2 Mitral Valve MV E Czwhwwoi48.8cm/sMV DECEL GATG075bu MV A Kreymkac235.7cm/sE/A Ratio0.6 Pulmonary Valve PV Peak Qnabnmjy388.3cm/s Tricuspid Valve TR P. Zfpviczz717hi/sRAP ECYUHLQH2qyRn TR Peak Gr.82ruLdYABM26rfRy LEFT VENTRICLE The left ventricle is normal size. There is mild concentric left ventricular hypertrophy. The left ve ntricular systolic function is normal. The ejection fraction is estimated at 75%. There is normal LV segmental wall motion. Transmitral Doppler flow pattern is Grade I-abnormal relaxation pattern. RIGHT VENTRICLE The right ventricle is normal size. There is normal right ventricular wall thickness. The right ventr icular systolic function is normal. ATRIA The left atrium is borderline dilated. The right atrium size is normal. The interatrial septum is int act with no evidence for an atrial septal defect or patent foramen ovale as noted on 2-D or Doppler i maging. AORTIC VALVE The aortic valve is not well visualized. Doppler and Color Flow revealed no significant aortic regurg itation. There is no significant aortic valvular stenosis. MITRAL VALVE The mitral valve is normal in structure and function. There is no evidence of mitral valve prolapse. There is no mitral valve stenosis. Doppler and Color Flow revealed no mitral valve regurgitation note d. TRICUSPID VALVE The tricuspid valve is normal in structure and function. Doppler and Color Flow revealed trace tricus pid regurgitation. There is no tricuspid valve stenosis. PULMONIC VALVE The pulmonic valve is not well visualized. Doppler and Color Flow revealed trace pulmonic valvular re gurgitation. GREAT VESSELS The aortic root is normal in size. The IVC is normal in size and collapses >50% with inspiration. PERICARDIAL EFFUSION There is no evidence of significant pericardial effusion. Critical Notification Critical Value: No <Conclusion> The left ventricular systolic function is normal. The ejection fraction is estimated at 75%. There is normal LV segmental wall motion. Transmitral Doppler flow pattern is Grade I-abnormal relaxation pattern. Doppler and Color Flow revealed trace tricuspid regurgitation. There is no evidence of significant pericardial effusion. Signed by : Tutu Velasquez, Electronically Approved : 04/06/2018 17:47:17
[2018-04-06 19:20] VITALS: BP 110/45
[2018-04-06] MEDS ORDERED: ASPIRIN CHEWABLE 81 MG TABLET. PO SCH (21:00)
[2018-04-06] MEDS ORDERED: ATORVASTATIN CALCIUM 10 MG TABLET. PO SCH (21:00)
[2018-04-06] MEDS: METOPROLOL TART IMMED RELEASE 25 MG TABLET. PO SCH (21:14)
[2018-04-07] MEDS: IV RINGERS,LACTATED 1000ML 1,000 ML IV SCH (02:59)
[2018-04-07 03:20] VITALS: BP 104/52
[2018-04-07 04:48] LABS: BASO % 0 % (0-3); EOS % 0 % (0-3); HEMATOCRIT 34.3 % (36.0-47.0); HEMOGLOBIN 11.5 g/dL (12.0-15.5); LYMPH # 0.1 x10^3/uL (1.0-4.8); LYMPH % 1 % (24-48); MEAN CORPUSCULAR HEMOGLOBIN 31 pg (25-35); MEAN CORPUSCULAR HGB CONC 34 g/dL (31-37); MEAN CORPUSCULAR VOLUME 91 fL (79-100); MONO # 0.5 x10^3/uL (0.0-1.1); MONO % 5 % (0-9); NEUT # 10.8 x10^3uL (1.8-7.7); NEUT % 94 % (31-73); PLATELET COUNT 153 x10^3/uL (140-400); RED BLOOD COUNT 3.76 x10^6/uL (3.50-5.40); RED CELL DISTRIBUTION WIDTH 15.7 % (11.5-14.5); WHITE BLOOD COUNT 11.5 x10^3/uL (4.0-11.0)
[2018-04-07 04:58] LABS: CREATININE 0.9 mg/dL (0.6-1.0); GFR 60.6; POTASSIUM 3.7 mmol/L (3.5-5.1)
[2018-04-07 05:10] LABS: CHOLESTEROL/HDL RATIO 2.3
[2018-04-07 07:20] VITALS: BP 105/52
[2018-04-07] MEDS ORDERED: ASPIRIN ENTERIC COATED 325 MG TABLET.DR. PO SCH (08:00)
--- NOTE | 2018-04-07 08:15 | PDOC ---
PROGRESS NOTES Chief Complaint Chief Complaint HTN Urgency Vestibular neuronitis Essential hypertension Diabetes mellitus type 2 insulin requiring Dyslipidemia UTI with Asymptomatic bacteriuria sample has epithelial cells and may be a contaminated sample. Patient has been started on Rocephin will follow the results of culture History of Present Illness History of Present Illness 77-year-old female with past medical history of hypertension diabetes, dyslipidemia who was in her usual state of health until 04/06/18 morning when she woke up and felt like she was leaning to the right and very unsteady on her feet. The patient denies any ringing in the ears sensation of fullness either no headache no sensation of the room spinning either. The patient denies slurred speech no hemiparesis and no paresthesias were noted. No recent changes to her medications either nor increased to her diabetes medications. The patient denies recent illnesses no viral infections have been reported. The patient denies emesis associated with the symptoms due to the sudden onset of her symptoms her family members got concerned and brought her to the emergency department for further evaluation and treatment. Found with SBP > 220mmHg and tachycardic into the 120s and with abnormal UA consistent with UTI. CTA showed mild bilateral carotid disease, no clot and MRI negative for infarct. ECHO: The left ventricular systolic function is normal. The ejection fraction is estimated at 75%. There is normal LV segmental wall motion. Transmitral Doppler flow pattern is Grade I-abnormal relaxation pattern. Doppler and Color Flow revealed trace tricuspid regurgitation. There is no evidence of significant pericardial effusion. No overnight events. She and daughter are concerned about her UTI and blood pressure. Vitals Vitals Vital Signs Date Time Temp Pulse Resp B/P (MAP) Pulse Ox O2 Delivery O2 Flow Rate FiO2 04/07/18 07:20 98.6 94 18 105/52 (69) 93 Room Air 98.6 Physical Exam General: Alert, No acute distress Heart: Regular rate, Normal S1, Normal S2 Lungs: Clear Abdomen: Normal bowel sounds, Soft, No tenderness Extremities: No clubbing, No cyanosis, No edema, Normal pulses, No tenderness/ swelling Skin: No rashes, No breakdown, No significant lesion Labs LABS Laboratory Tests Test 04/06/18 09:10 04/06/18 09:14 04/06/18 09:50 04/06/18 16:36 Urine Collection Type Unknown Urine Color Yellow Urine Clarity Clear Urine pH 5.5 Urine Specific [place] 1.020 Urine Protein Negative mg/dL (NEG-TRACE) Urine Glucose (UA) Negative mg/dL (NEG) Urine Ketones (Stick) Negative mg/dL (NEG) Urine Blood Negative (NEG) Urine Nitrite Positive (NEG) Urine Bilirubin Negative (NEG) Urine Urobilinogen Dipstick 0.2 mg/dL (0.2 mg/dL) Urine Leukocyte Esterase Large (NEG) Urine RBC 0 /HPF (0-2) Urine WBC >40 /HPF (0-4) Urine Squamous Epithelial Cells Few /LPF Urine Bacteria Many /HPF (0-FEW) Glucose (Fingerstick) 176 mg/dL (70-99) 141 mg/dL (70-99) White Blood Count 8.9 x10^3/uL (4.0-11.0) Red Blood Count 4.20 x10^6/uL (3.50-5.40) Hemoglobin 12.7 g/dL (12.0-15.5) Hematocrit 38.7 % (36.0-47.0) Mean Corpuscular Volume 92 fL (79-100) Mean Corpuscular Hemoglobin 30 pg (25-35) Mean Corpuscular Hemoglobin Concent 33 g/dL (31-37) Red Cell Distribution Width 15.5 % (11.5-14.5) Platelet Count 177 x10^3/uL (140-400) Neutrophils (%) (Auto) 72 % (31-73) Lymphocytes (%) (Auto) 21 % (24-48) Monocytes (%) (Auto) 5 % (0-9) Eosinophils (%) (Auto) 1 % (0-3) Basophils (%) (Auto) 1 % (0-3) Neutrophils # (Auto) 6.4 x10^3uL (1.8-7.7) Lymphocytes # (Auto) 1.8 x10^3/uL (1.0-4.8) Monocytes # (Auto) 0.5 x10^3/uL (0.0-1.1) Eosinophils # (Auto) 0.1 x10^3/uL (0.0-0.7) Basophils # (Auto) 0.1 x10^3/uL (0.0-0.2) Sodium Level 137 mmol/L (136-145) Potassium Level 4.1 mmol/L (3.5-5.1) Chloride Level 98 mmol/L (98-107) Carbon Dioxide Level 24 mmol/L (21-32) Anion Gap 15 (6-14) Blood Urea Nitrogen 16 mg/dL (7-20) Creatinine 0.8 mg/dL (0.6-1.0) Estimated GFR (Cockcroft-Gault) 69.4 BUN/Creatinine Ratio 20 (6-20) Glucose Level 180 mg/dL (70-99) Calcium Level 9.9 mg/dL (8.5-10.1) Total Bilirubin 0.4 mg/dL (0.2-1.0) Aspartate Amino Transf (AST/SGOT) 55 U/L (15-37) Alanine Aminotransferase (ALT/SGPT) 61 U/L (14-59) Alkaline Phosphatase 115 U/L (46-116) Total Protein 7.1 g/dL (6.4-8.2) Albumin 3.6 g/dL (3.4-5.0) Albumin/Globulin Ratio 1.0 (1.0-1.7) Test 04/06/18 21:34 04/07/18 04:05 04/07/18 07:28 Glucose (Fingerstick) 164 mg/dL (70-99) 110 mg/dL (70-99) White Blood Count 11.5 x10^3/uL (4.0-11.0) Red Blood Count 3.76 x10^6/uL (3.50-5.40) Hemoglobin 11.5 g/dL (12.0-15.5) Hematocrit 34.3 % (36.0-47.0) Mean Corpuscular Volume 91 fL (79-100) Mean Corpuscular Hemoglobin 31 pg (25-35) Mean Corpuscular Hemoglobin Concent 34 g/dL (31-37) Red Cell Distribution Width 15.7 % (11.5-14.5) Platelet Count 153 x10^3/uL (140-400) Neutrophils (%) (Auto) 94 % (31-73) Lymphocytes (%) (Auto) 1 % (24-48) Monocytes (%) (Auto) 5 % (0-9) Eosinophils (%) (Auto) 0 % (0-3) Basophils (%) (Auto) 0 % (0-3) Neutrophils # (Auto) 10.8 x10^3uL (1.8-7.7) Lymphocytes # (Auto) 0.1 x10^3/uL (1.0-4.8) Monocytes # (Auto) 0.5 x10^3/uL (0.0-1.1) Eosinophils # (Auto) 0.0 x10^3/uL (0.0-0.7) Basophils # (Auto) 0.0 x10^3/uL (0.0-0.2) Sodium Level 135 mmol/L (136-145) Potassium Level 3.7 mmol/L (3.5-5.1) Chloride Level 99 mmol/L (98-107) Carbon Dioxide Level 25 mmol/L (21-32) Anion Gap 11 (6-14) Blood Urea Nitrogen 17 mg/dL (7-20) Creatinine 0.9 mg/dL (0.6-1.0) Estimated GFR (Cockcroft-Gault) 60.6 Glucose Level 141 mg/dL (70-99) Calcium Level 9.0 mg/dL (8.5-10.1) Triglycerides Level 125 mg/dL (0-150) Cholesterol Level 88 mg/dL (0-200) LDL Cholesterol, Calculated 24 mg/dL (0-100) VLDL Cholesterol, Calculated 25 mg/dL (0-40) Non-HDL Cholesterol Calculated 49 mg/dL (0-129) HDL Cholesterol 39 mg/dL (40-60) Cholesterol/HDL Ratio 2.3 Assessment and Plan Assessmemt and Plan Problems Medical Problems: (1) Vertigo Status: Acute Comment Review of Relevant I have reviewed the following items janet (where applicable) has been applied. Labs Laboratory Tests Test 04/06/18 09:10 04/06/18 09:14 04/06/18 09:50 04/06/18 16:36 Urine Collection Type Unknown Urine Color Yellow Urine Clarity Clear Urine pH 5.5 Urine Specific [place] 1.020 Urine Protein Negative mg/dL (NEG-TRACE) Urine Glucose (UA) Negative mg/dL (NEG) Urine Ketones (Stick) Negative mg/dL (NEG) Urine Blood Negative (NEG) Urine Nitrite Positive (NEG) Urine Bilirubin Negative (NEG) Urine Urobilinogen Dipstick 0.2 mg/dL (0.2 mg/dL) Urine Leukocyte Esterase Large (NEG) Urine RBC 0 /HPF (0-2) Urine WBC >40 /HPF (0-4) Urine Squamous Epithelial Cells Few /LPF Urine Bacteria Many /HPF (0-FEW) Glucose (Fingerstick) 176 mg/dL (70-99) 141 mg/dL (70-99) White Blood Count 8.9 x10^3/uL (4.0-11.0) Red Blood Count 4.20 x10^6/uL (3.50-5.40) Hemoglobin 12.7 g/dL (12.0-15.5) Hematocrit 38.7 % (36.0-47.0) Mean Corpuscular Volume 92 fL (79-100) Mean Corpuscular Hemoglobin 30 pg (25-35) Mean Corpuscular Hemoglobin Concent 33 g/dL (31-37) Red Cell Distribution Width 15.5 % (11.5-14.5) Platelet Count 177 x10^3/uL (140-400) Neutrophils (%) (Auto) 72 % (31-73) Lymphocytes (%) (Auto) 21 % (24-48) Monocytes (%) (Auto) 5 % (0-9) Eosinophils (%) (Auto) 1 % (0-3) Basophils (%) (Auto) 1 % (0-3) Neutrophils # (Auto) 6.4 x10^3uL (1.8-7.7) Lymphocytes # (Auto) 1.8 x10^3/uL (1.0-4.8) Monocytes # (Auto) 0.5 x10^3/uL (0.0-1.1) Eosinophils # (Auto) 0.1 x10^3/uL (0.0-0.7) Basophils # (Auto) 0.1 x10^3/uL (0.0-0.2) Sodium Level 137 mmol/L (136-145) Potassium Level 4.1 mmol/L (3.5-5.1) Chloride Level 98 mmol/L (98-107) Carbon Dioxide Level 24 mmol/L (21-32) Anion Gap 15 (6-14) Blood Urea Nitrogen 16 mg/dL (7-20) Creatinine 0.8 mg/dL (0.6-1.0) Estimated GFR (Cockcroft-Gault) 69.4 BUN/Creatinine Ratio 20 (6-20) Glucose Level 180 mg/dL (70-99) Calcium Level 9.9 mg/dL (8.5-10.1) Total Bilirubin 0.4 mg/dL (0.2-1.0) Aspartate Amino Transf (AST/SGOT) 55 U/L (15-37) Alanine Aminotransferase (ALT/SGPT) 61 U/L (14-59) Alkaline Phosphatase 115 U/L (46-116) Total Protein 7.1 g/dL (6.4-8.2) Albumin 3.6 g/dL (3.4-5.0) Albumin/Globulin Ratio 1.0 (1.0-1.7) Test 04/06/18 21:34 04/07/18 04:05 04/07/18 07:28 Glucose (Fingerstick) 164 mg/dL (70-99) 110 mg/dL (70-99) White Blood Count 11.5 x10^3/uL (4.0-11.0) Red Blood Count 3.76 x10^6/uL (3.50-5.40) Hemoglobin 11.5 g/dL (12.0-15.5) Hematocrit 34.3 % (36.0-47.0) Mean Corpuscular Volume 91 fL (79-100) Mean Corpuscular Hemoglobin 31 pg (25-35) Mean Corpuscular Hemoglobin Concent 34 g/dL (31-37) Red Cell Distribution Width 15.7 % (11.5-14.5) Platelet Count 153 x10^3/uL (140-400) Neutrophils (%) (Auto) 94 % (31-73) Lymphocytes (%) (Auto) 1 % (24-48) Monocytes (%) (Auto) 5 % (0-9) Eosinophils (%) (Auto) 0 % (0-3) Basophils (%) (Auto) 0 % (0-3) Neutrophils # (Auto) 10.8 x10^3uL (1.8-7.7) Lymphocytes # (Auto) 0.1 x10^3/uL (1.0-4.8) Monocytes # (Auto) 0.5 x10^3/uL (0.0-1.1) Eosinophils # (Auto) 0.0 x10^3/uL (0.0-0.7) Basophils # (Auto) 0.0 x10^3/uL (0.0-0.2) Sodium Level 135 mmol/L (136-145) Potassium Level 3.7 mmol/L (3.5-5.1) Chloride Level 99 mmol/L (98-107) Carbon Dioxide Level 25 mmol/L (21-32) Anion Gap 11 (6-14) Blood Urea Nitrogen 17 mg/dL (7-20) Creatinine 0.9 mg/dL (0.6-1.0) Estimated GFR (Cockcroft-Gault) 60.6 Glucose Level 141 mg/dL (70-99) Calcium Level 9.0 mg/dL (8.5-10.1) Triglycerides Level 125 mg/dL (0-150) Cholesterol Level 88 mg/dL (0-200) LDL Cholesterol, Calculated 24 mg/dL (0-100) VLDL Cholesterol, Calculated 25 mg/dL (0-40) Non-HDL Cholesterol Calculated 49 mg/dL (0-129) HDL Cholesterol 39 mg/dL (40-60) Cholesterol/HDL Ratio 2.3 Laboratory Tests Test 04/06/18 09:10 04/06/18 09:14 04/06/18 09:50 04/06/18 16:36 Urine Collection Type Unknown Urine Color Yellow Urine Clarity Clear Urine pH 5.5 Urine Specific [place] 1.020 Urine Protein Negative mg/dL (NEG-TRACE) Urine Glucose (UA) Negative mg/dL (NEG) Urine Ketones (Stick) Negative mg/dL (NEG) Urine Blood Negative (NEG) Urine Nitrite Positive (NEG) Urine Bilirubin Negative (NEG) Urine Urobilinogen Dipstick 0.2 mg/dL (0.2 mg/dL) Urine Leukocyte Esterase Large (NEG) Urine RBC 0 /HPF (0-2) Urine WBC >40 /HPF (0-4) Urine Squamous Epithelial Cells Few /LPF Urine Bacteria Many /HPF (0-FEW) Glucose (Fingerstick) 176 mg/dL (70-99) 141 mg/dL (70-99) White Blood Count 8.9 x10^3/uL (4.0-11.0) Red Blood Count 4.20 x10^6/uL (3.50-5.40) Hemoglobin 12.7 g/dL (12.0-15.5) Hematocrit 38.7 % (36.0-47.0) Mean Corpuscular Volume 92 fL (79-100) Mean Corpuscular Hemoglobin 30 pg (25-35) Mean Corpuscular Hemoglobin Concent 33 g/dL (31-37) Red Cell Distribution Width 15.5 % (11.5-14.5) Platelet Count 177 x10^3/uL (140-400) Neutrophils (%) (Auto) 72 % (31-73) Lymphocytes (%) (Auto) 21 % (24-48) Monocytes (%) (Auto) 5 % (0-9) Eosinophils (%) (Auto) 1 % (0-3) Basophils (%) (Auto) 1 % (0-3) Neutrophils # (Auto) 6.4 x10^3uL (1.8-7.7) Lymphocytes # (Auto) 1.8 x10^3/uL (1.0-4.8) Monocytes # (Auto) 0.5 x10^3/uL (0.0-1.1) Eosinophils # (Auto) 0.1 x10^3/uL (0.0-0.7) Basophils # (Auto) 0.1 x10^3/uL (0.0-0.2) Sodium Level 137 mmol/L (136-145) Potassium Level 4.1 mmol/L (3.5-5.1) Chloride Level 98 mmol/L (98-107) Carbon Dioxide Level 24 mmol/L (21-32) Anion Gap 15 (6-14) Blood Urea Nitrogen 16 mg/dL (7-20) Creatinine 0.8 mg/dL (0.6-1.0) Estimated GFR (Cockcroft-Gault) 69.4 BUN/Creatinine Ratio 20 (6-20) Glucose Level 180 mg/dL (70-99) Calcium Level 9.9 mg/dL (8.5-10.1) Total Bilirubin 0.4 mg/dL (0.2-1.0) Aspartate Amino Transf (AST/SGOT) 55 U/L (15-37) Alanine Aminotransferase (ALT/SGPT) 61 U/L (14-59) Alkaline Phosphatase 115 U/L (46-116) Total Protein 7.1 g/dL (6.4-8.2) Albumin 3.6 g/dL (3.4-5.0) Albumin/Globulin Ratio 1.0 (1.0-1.7) Test 04/06/18 21:34 04/07/18 04:05 04/07/18 07:28 Glucose (Fingerstick) 164 mg/dL (70-99) 110 mg/dL (70-99) White Blood Count 11.5 x10^3/uL (4.0-11.0) Red Blood Count 3.76 x10^6/uL (3.50-5.40) Hemoglobin 11.5 g/dL (12.0-15.5) Hematocrit 34.3 % (36.0-47.0) Mean Corpuscular Volume 91 fL (79-100) Mean Corpuscular Hemoglobin 31 pg (25-35) Mean Corpuscular Hemoglobin Concent 34 g/dL (31-37) Red Cell Distribution Width 15.7 % (11.5-14.5) Platelet Count 153 x10^3/uL (140-400) Neutrophils (%) (Auto) 94 % (31-73) Lymphocytes (%) (Auto) 1 % (24-48) Monocytes (%) (Auto) 5 % (0-9) Eosinophils (%) (Auto) 0 % (0-3) Basophils (%) (Auto) 0 % (0-3) Neutrophils # (Auto) 10.8 x10^3uL (1.8-7.7) Lymphocytes # (Auto) 0.1 x10^3/uL (1.0-4.8) Monocytes # (Auto) 0.5 x10^3/uL (0.0-1.1) Eosinophils # (Auto) 0.0 x10^3/uL (0.0-0.7) Basophils # (Auto) 0.0 x10^3/uL (0.0-0.2) Sodium Level 135 mmol/L (136-145) Potassium Level 3.7 mmol/L (3.5-5.1) Chloride Level 99 mmol/L (98-107) Carbon Dioxide Level 25 mmol/L (21-32) Anion Gap 11 (6-14) Blood Urea Nitrogen 17 mg/dL (7-20) Creatinine 0.9 mg/dL (0.6-1.0) Estimated GFR (Cockcroft-Gault) 60.6 Glucose Level 141 mg/dL (70-99) Calcium Level 9.0 mg/dL (8.5-10.1) Triglycerides Level 125 mg/dL (0-150) Cholesterol Level 88 mg/dL (0-200) LDL Cholesterol, Calculated 24 mg/dL (0-100) VLDL Cholesterol, Calculated 25 mg/dL (0-40) Non-HDL Cholesterol Calculated 49 mg/dL (0-129) HDL Cholesterol 39 mg/dL (40-60) Cholesterol/HDL Ratio 2.3 Medications Current Medications Sodium Chloride 500 ml @ 500 mls/hr 1X ONCE IV Last administered on at 10:00; Start 04/06/18 at 10:00; Stop 04/06/18 at 10:59; Status DC Iohexol (Omnipaque 350 Mg/ml) 90 ml 1X ONCE IV Last administered on 04/06/18at 10:37; Start 04/06/18 at 10:15; Stop 04/06/18 at 10:16; Status DC Info (CONTRAST GIVEN -- Rx MONITORING) 1 each PRN DAILY PRN MC SEE COMMENTS; Start 04/06/18 at 10:15; Stop 04/08/18 at 10:14 Labetalol HCl (Normodyne Iv Push) 10 mg 1X ONCE IVP Last administered on at 11:20; Start 04/06/18 at 11:00; Stop 04/06/18 at 11:01; Status DC Ceftriaxone Sodium (Rocephin) 1 gm 1X ONCE IVP Last administered on 04/06/18at 11:20; Start 04/06/18 at 11:15; Stop 04/06/18 at 11:16; Status DC Ondansetron HCl (Zofran) 4 mg PRN Q8HRS PRN IV NAUSEA/VOMITING; Start 04/06/18 at 11:45; Stop 04/07/18 at 11:44 Morphine Sulfate (Morphine Sulfate) 2 mg PRN Q2HR PRN IV PAIN Last administered on 04/06/18at 13:19; Start 04/06/18 at 11:45; Stop 04/07/18 at 11:44 Acetaminophen (Tylenol) 650 mg PRN Q6HRS PRN PO TEMP > 100.4F; Start 04/06/18 at 13:45 Acetaminophen (Tylenol Supp) 650 mg PRN Q4HRS PRN NC TEMP > 100.4F; Start 04/06 at 13:45 Aspirin (Ecotrin) 325 mg DAILYWBKFT PO ; Start 04/07/18 at 08:00 Aspirin (Aspirin) 300 mg PRN DAILY PRN NC IF UNABLE TO TAKE PO; Start 04/06/18 at 13:45 Meclizine HCl (Antivert) 12.5 mg PRN Q6HRS PRN PO DIZZINESS; Start 04/06/18 at 13:45; Stop 04/06/18 at 16:43; Status DC Allopurinol (Zyloprim) 300 mg DAILY PO Last administered on 04/06/18at 16:15; Start 04/06/18 at 16:00 Aspirin (Children'S Aspirin) 81 mg HS PO ; Start 04/06/18 at 21:00; Status UNV Glipizide (Glucotrol Er) 2.5 mg DAILY PO ; Start 04/07/18 at 09:00 Hydrochlorothiazide (Microzide) 25 mg DAILY PO Last administered on 04/06/18at 16:15; Start 04/06/18 at 16:00 Losartan Potassium (Cozaar) 50 mg DAILY PO Last administered on 04/06/18at 16:15 ; Start 04/06/18 at 16:00 Metoprolol Tartrate (Lopressor) 25 mg BID PO Last administered on 04/06/18at 21: 14; Start 04/06/18 at 21:00 Atorvastatin Calcium (Lipitor) 10 mg QHS PO Last administered on 04/06/18at 21: 13; Start 04/06/18 at 21:00 Metformin HCl (Glucophage) 500 mg BIDWMEALS PO ; Start 04/08/18 at 17:00 Pantoprazole Sodium (Protonix) 40 mg DAILYAC PO Last administered on 04/06/18at 16:15; Start 04/06/18 at 16:30 Vitamin B Complex (Memo B) 1 tab DAILY PO Last administered on 04/06/18at 16:15 ; Start 04/06/18 at 16:00 Ringer's Solution 1,000 ml @ 100 mls/hr Q10H IV Last administered on at 02:59; Start 04/06/18 at 16:45 Meclizine HCl (Antivert) 25 mg PRN Q8HRS PRN PO DIZZINESS Last administered on 04/06/18at 17:43; Start 04/06/18 at 16:45 Active Scripts Active Reported Lovastatin 40 Mg Tablet 1 Tab PO DAILY Aspirin 81 Mg Tab.chew 1 Tab PO HS Vitamin B Complex 1 Each Capsule 1 Each PO DAILY Allopurinol 300 Mg Tablet 1 Tab PO DAILY Omeprazole 20 Mg Capsule.dr 1 Cap PO DAILY Glipizide Er (Glipizide) 2.5 Mg Tab.er.24 1 Tab PO DAILY Hydrochlorothiazide Capsule (Hydrochlorothiazide) 12.5 Mg Capsule 25 Mg PO DAILY Losartan Potassium 50 Mg Tablet 50 Mg PO DAILY Metoprolol Tartrate 25 Mg Tablet 1 Tab PO BID Metformin Hcl 500 Mg Tablet 500 Mg PO BIDWMEALS Vitals/I & O Vital Sign - Last 24 Hours 04/06/18 04/06/18 04/06/18 04/06/18 08:58 09:39 10:09 10:50 Temp 97.8 97.8 Pulse 119 104 108 108 Resp 16 20 16 16 B/P (MAP) 225/86 (132) 195/85 (121) 181/81 (114) 195/88 (123) Pulse Ox 97 98 97 97 O2 Delivery Room Air Room Air 04/06/18 04/06/18 04/06/18 04/06/18 11:09 11:20 11:29 11:39 Pulse 106 110 98 98 Resp 16 16 16 B/P (MAP) 173/79 (110) 173/79 166/77 (106) 151/63 (92) Pulse Ox 97 95 95 O2 Delivery Room Air 04/06/18 04/06/18 04/06/18 04/06/18 12:09 12:39 13:09 13:19 Pulse 104 126 120 Resp 16 20 20 16 B/P (MAP) 142/67 (92) 181/86 (117) 155/70 (98) Pulse Ox 95 97 96 98 O2 Delivery Room Air Room Air 04/06/18 04/06/18 04/06/18 04/06/18 13:48 13:54 15:00 16:15 Temp 97.8 97.8 Pulse 128 128 Resp 16 B/P (MAP) 143/66 (91) 143/66 Pulse Ox 95 O2 Delivery Room Air Room Air Room Air 04/06/18 04/06/18 04/06/18 04/07/18 19:20 20:00 21:14 03:20 Temp 98.6 97.6 98.6 97.6 Pulse 127 127 102 Resp 16 16 B/P (MAP) 110/45 (66) 110/45 104/52 (69) Pulse Ox 91 92 O2 Delivery Room Air Room Air Room Air 04/07/18 07:20 Temp 98.6 98.6 Pulse 94 Resp 18 B/P (MAP) 105/52 (69) Pulse Ox 93 O2 Delivery Room Air Intake and Output 04/06/18 04/06/18 04/07/18 15:01 23:01 07:01 Intake Total 500 ml 120 ml 400 ml Balance 500 ml 120 ml 400 ml CURLY OMORE MD Apr 07, 2018 08:15
[2018-04-07] MEDS ORDERED: glipiZIDE ER 2.5 MG TAB.ER.24 PO SCH (09:00)
[2018-04-07] MEDS: METOPROLOL TART IMMED RELEASE 25 MG TABLET. PO SCH (09:00)
[2018-04-07] MEDS: LOSARTAN POTASSIUM 50 MG TABLET. PO SCH (09:00)
[2018-04-07 09:40] LABS: % BANDS 18 % (0-9); % MONOS 1 % (0-10); % SEGS 81 % (35-66); PLT ESTIMATE ADEQUATE (ADEQUATE)
[2018-04-07] MEDS: VITAMIN B COMPLEX TABLET. PO SCH (10:29)
[2018-04-07] MEDS: PANTOPRAZOLE 40 MG TABLET.DR. PO SCH (10:31)
[2018-04-07] MEDS: ALLOPURINOL 300 MG TABLET. PO SCH (10:31)
[2018-04-07] MEDS: hydroCHLOROthiazide 12.5 MG CAPSULE PO SCH (10:32)
[2018-04-07 11:38] VITALS: BP 124/60
[2018-04-07] MEDS ORDERED: CLOTRIMAZOLE/BETAMETH 1%-0.05% TOPICAL CREAM 15GM TUBE. TP SCH (13:00)
--- NOTE | 2018-04-07 13:46 | PDOC ---
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 Better Note lipids Plan Daily aspirin. 325 mg When necessary meclizine. Okay for discharge once physical therapy clears I told the patient not to use meclizine more than a few days or so as chronic use can interfere with the brain's habituation to the abnormal vestibular input. Subjective Feels much better Objective Vital Signs Date Time Temp Pulse Resp B/P (MAP) Pulse Ox O2 Delivery O2 Flow Rate FiO2 04/07/18 11:38 97.5 94 18 124/60 (81) 93 Room Air 97.5 Intake and Output 04/07/18 07:01 Intake Total 1020 ml Balance 1020 ml Intake Oral 520 ml IV Total 500 ml # Voids 2 PHYSICAL EXAM Alert. Oriented to time, place and person. PERRL. EOMI. no nystagmus CN: no focal findings. Muscle tone: normal. Muscle strength: 5/5 DTR: 2+ Plantar reflex: Flexor Gait: Still unsteady, better than yesterday Sensory exam: no abnormal findings. No cerebellar signs elicited. Review of Relevant I have reviewed the following items janet (where applicable) has been applied. Labs Laboratory Tests Test 04/06/18 09:10 04/06/18 09:14 04/06/18 09:50 04/06/18 16:36 Urine Collection Type Unknown Urine Color Yellow Urine Clarity Clear Urine pH 5.5 Urine Specific [place] 1.020 Urine Protein Negative mg/dL (NEG-TRACE) Urine Glucose (UA) Negative mg/dL (NEG) Urine Ketones (Stick) Negative mg/dL (NEG) Urine Blood Negative (NEG) Urine Nitrite Positive (NEG) Urine Bilirubin Negative (NEG) Urine Urobilinogen Dipstick 0.2 mg/dL (0.2 mg/dL) Urine Leukocyte Esterase Large (NEG) Urine RBC 0 /HPF (0-2) Urine WBC >40 /HPF (0-4) Urine Squamous Epithelial Cells Few /LPF Urine Bacteria Many /HPF (0-FEW) Glucose (Fingerstick) 176 mg/dL (70-99) 141 mg/dL (70-99) White Blood Count 8.9 x10^3/uL (4.0-11.0) Red Blood Count 4.20 x10^6/uL (3.50-5.40) Hemoglobin 12.7 g/dL (12.0-15.5) Hematocrit 38.7 % (36.0-47.0) Mean Corpuscular Volume 92 fL (79-100) Mean Corpuscular Hemoglobin 30 pg (25-35) Mean Corpuscular Hemoglobin Concent 33 g/dL (31-37) Red Cell Distribution Width 15.5 % (11.5-14.5) Platelet Count 177 x10^3/uL (140-400) Neutrophils (%) (Auto) 72 % (31-73) Lymphocytes (%) (Auto) 21 % (24-48) Monocytes (%) (Auto) 5 % (0-9) Eosinophils (%) (Auto) 1 % (0-3) Basophils (%) (Auto) 1 % (0-3) Neutrophils # (Auto) 6.4 x10^3uL (1.8-7.7) Lymphocytes # (Auto) 1.8 x10^3/uL (1.0-4.8) Monocytes # (Auto) 0.5 x10^3/uL (0.0-1.1) Eosinophils # (Auto) 0.1 x10^3/uL (0.0-0.7) Basophils # (Auto) 0.1 x10^3/uL (0.0-0.2) Sodium Level 137 mmol/L (136-145) Potassium Level 4.1 mmol/L (3.5-5.1) Chloride Level 98 mmol/L (98-107) Carbon Dioxide Level 24 mmol/L (21-32) Anion Gap 15 (6-14) Blood Urea Nitrogen 16 mg/dL (7-20) Creatinine 0.8 mg/dL (0.6-1.0) Estimated GFR (Cockcroft-Gault) 69.4 BUN/Creatinine Ratio 20 (6-20) Glucose Level 180 mg/dL (70-99) Calcium Level 9.9 mg/dL (8.5-10.1) Total Bilirubin 0.4 mg/dL (0.2-1.0) Aspartate Amino Transf (AST/SGOT) 55 U/L (15-37) Alanine Aminotransferase (ALT/SGPT) 61 U/L (14-59) Alkaline Phosphatase 115 U/L (46-116) Total Protein 7.1 g/dL (6.4-8.2) Albumin 3.6 g/dL (3.4-5.0) Albumin/Globulin Ratio 1.0 (1.0-1.7) Test 04/06/18 21:34 04/07/18 04:05 04/07/18 07:28 04/07/18 11:31 Glucose (Fingerstick) 164 mg/dL (70-99) 110 mg/dL (70-99) 155 mg/dL (70-99) White Blood Count 11.5 x10^3/uL (4.0-11.0) Red Blood Count 3.76 x10^6/uL (3.50-5.40) Hemoglobin 11.5 g/dL (12.0-15.5) Hematocrit 34.3 % (36.0-47.0) Mean Corpuscular Volume 91 fL (79-100) Mean Corpuscular Hemoglobin 31 pg (25-35) Mean Corpuscular Hemoglobin Concent 34 g/dL (31-37) Red Cell Distribution Width 15.7 % (11.5-14.5) Platelet Count 153 x10^3/uL (140-400) Neutrophils (%) (Auto) 94 % (31-73) Lymphocytes (%) (Auto) 1 % (24-48) Monocytes (%) (Auto) 5 % (0-9) Eosinophils (%) (Auto) 0 % (0-3) Basophils (%) (Auto) 0 % (0-3) Neutrophils # (Auto) 10.8 x10^3uL (1.8-7.7) Lymphocytes # (Auto) 0.1 x10^3/uL (1.0-4.8) Monocytes # (Auto) 0.5 x10^3/uL (0.0-1.1) Eosinophils # (Auto) 0.0 x10^3/uL (0.0-0.7) Basophils # (Auto) 0.0 x10^3/uL (0.0-0.2) Segmented Neutrophils % 81 % (35-66) Band Neutrophils % 18 % (0-9) Monocytes % 1 % (0-10) Platelet Estimate Adequate (ADEQUATE) Sodium Level 135 mmol/L (136-145) Potassium Level 3.7 mmol/L (3.5-5.1) Chloride Level 99 mmol/L (98-107) Carbon Dioxide Level 25 mmol/L (21-32) Anion Gap 11 (6-14) Blood Urea Nitrogen 17 mg/dL (7-20) Creatinine 0.9 mg/dL (0.6-1.0) Estimated GFR (Cockcroft-Gault) 60.6 Glucose Level 141 mg/dL (70-99) Calcium Level 9.0 mg/dL (8.5-10.1) Triglycerides Level 125 mg/dL (0-150) Cholesterol Level 88 mg/dL (0-200) LDL Cholesterol, Calculated 24 mg/dL (0-100) VLDL Cholesterol, Calculated 25 mg/dL (0-40) Non-HDL Cholesterol Calculated 49 mg/dL (0-129) HDL Cholesterol 39 mg/dL (40-60) Cholesterol/HDL Ratio 2.3 Laboratory Tests Test 04/06/18 16:36 04/06/18 21:34 04/07/18 04:05 04/07/18 07:28 Glucose (Fingerstick) 141 mg/dL (70-99) 164 mg/dL (70-99) 110 mg/dL (70-99) White Blood Count 11.5 x10^3/uL (4.0-11.0) Red Blood Count 3.76 x10^6/uL (3.50-5.40) Hemoglobin 11.5 g/dL (12.0-15.5) Hematocrit 34.3 % (36.0-47.0) Mean Corpuscular Volume 91 fL (79-100) Mean Corpuscular Hemoglobin 31 pg (25-35) Mean Corpuscular Hemoglobin Concent 34 g/dL (31-37) Red Cell Distribution Width 15.7 % (11.5-14.5) Platelet Count 153 x10^3/uL (140-400) Neutrophils (%) (Auto) 94 % (31-73) Lymphocytes (%) (Auto) 1 % (24-48) Monocytes (%) (Auto) 5 % (0-9) Eosinophils (%) (Auto) 0 % (0-3) Basophils (%) (Auto) 0 % (0-3) Neutrophils # (Auto) 10.8 x10^3uL (1.8-7.7) Lymphocytes # (Auto) 0.1 x10^3/uL (1.0-4.8) Monocytes # (Auto) 0.5 x10^3/uL (0.0-1.1) Eosinophils # (Auto) 0.0 x10^3/uL (0.0-0.7) Basophils # (Auto) 0.0 x10^3/uL (0.0-0.2) Segmented Neutrophils % 81 % (35-66) Band Neutrophils % 18 % (0-9) Monocytes % 1 % (0-10) Platelet Estimate Adequate (ADEQUATE) Sodium Level 135 mmol/L (136-145) Potassium Level 3.7 mmol/L (3.5-5.1) Chloride Level 99 mmol/L (98-107) Carbon Dioxide Level 25 mmol/L (21-32) Anion Gap 11 (6-14) Blood Urea Nitrogen 17 mg/dL (7-20) Creatinine 0.9 mg/dL (0.6-1.0) Estimated GFR (Cockcroft-Gault) 60.6 Glucose Level 141 mg/dL (70-99) Calcium Level 9.0 mg/dL (8.5-10.1) Triglycerides Level 125 mg/dL (0-150) Cholesterol Level 88 mg/dL (0-200) LDL Cholesterol, Calculated 24 mg/dL (0-100) VLDL Cholesterol, Calculated 25 mg/dL (0-40) Non-HDL Cholesterol Calculated 49 mg/dL (0-129) HDL Cholesterol 39 mg/dL (40-60) Cholesterol/HDL Ratio 2.3 Test 04/07/18 11:31 Glucose (Fingerstick) 155 mg/dL (70-99) Medications Current Medications Sodium Chloride 500 ml @ 500 mls/hr 1X ONCE IV Last administered on at 10:00; Start 04/06/18 at 10:00; Stop 04/06/18 at 10:59; Status DC Iohexol (Omnipaque 350 Mg/ml) 90 ml 1X ONCE IV Last administered on 04/06/18at 10:37; Start 04/06/18 at 10:15; Stop 04/06/18 at 10:16; Status DC Info (CONTRAST GIVEN -- Rx MONITORING) 1 each PRN DAILY PRN MC SEE COMMENTS; Start 04/06/18 at 10:15; Stop 04/08/18 at 10:14 Labetalol HCl (Normodyne Iv Push) 10 mg 1X ONCE IVP Last administered on at 11:20; Start 04/06/18 at 11:00; Stop 04/06/18 at 11:01; Status DC Ceftriaxone Sodium (Rocephin) 1 gm 1X ONCE IVP Last administered on 04/06/18at 11:20; Start 04/06/18 at 11:15; Stop 04/06/18 at 11:16; Status DC Ondansetron HCl (Zofran) 4 mg PRN Q8HRS PRN IV NAUSEA/VOMITING; Start 04/06/18 at 11:45; Stop 04/07/18 at 11:44; Status DC Morphine Sulfate (Morphine Sulfate) 2 mg PRN Q2HR PRN IV PAIN Last administered on 04/06/18at 13:19; Start 04/06/18 at 11:45; Stop 04/07/18 at 11:44 ; Status DC Acetaminophen (Tylenol) 650 mg PRN Q6HRS PRN PO TEMP > 100.4F; Start 04/06/18 at 13:45 Acetaminophen (Tylenol Supp) 650 mg PRN Q4HRS PRN MD TEMP > 100.4F; Start 04/06 at 13:45 Aspirin (Ecotrin) 325 mg DAILYWBKFT PO Last administered on 04/07/18at 10:28; Start 04/07/18 at 08:00 Aspirin (Aspirin) 300 mg PRN DAILY PRN MD IF UNABLE TO TAKE PO; Start 04/06/18 at 13:45 Meclizine HCl (Antivert) 12.5 mg PRN Q6HRS PRN PO DIZZINESS; Start 04/06/18 at 13:45; Stop 04/06/18 at 16:43; Status DC Allopurinol (Zyloprim) 300 mg DAILY PO Last administered on 04/07/18at 10:31; Start 04/06/18 at 16:00 Aspirin (Children'S Aspirin) 81 mg HS PO ; Start 04/06/18 at 21:00; Status UNV Glipizide (Glucotrol Er) 2.5 mg DAILY PO Last administered on 04/07/18at 10:31; Start 04/07/18 at 09:00 Hydrochlorothiazide (Microzide) 25 mg DAILY PO Last administered on 04/07/18at 10:32; Start 04/06/18 at 16:00 Losartan Potassium (Cozaar) 50 mg DAILY PO Last administered on 04/06/18at 16:15 ; Start 04/06/18 at 16:00 Metoprolol Tartrate (Lopressor) 25 mg BID PO Last administered on 04/06/18at 21: 14; Start 04/06/18 at 21:00 Atorvastatin Calcium (Lipitor) 10 mg QHS PO Last administered on 04/06/18at 21: 13; Start 04/06/18 at 21:00 Metformin HCl (Glucophage) 500 mg BIDWMEALS PO ; Start 04/08/18 at 17:00 Pantoprazole Sodium (Protonix) 40 mg DAILYAC PO Last administered on 04/07/18at 10:31; Start 04/06/18 at 16:30 Vitamin B Complex (Memo B) 1 tab DAILY PO Last administered on 04/07/18at 10:29 ; Start 04/06/18 at 16:00 Ringer's Solution 1,000 ml @ 100 mls/hr Q10H IV Last administered on 02:59; Start 04/06/18 at 16:45; Stop 04/07/18 at 12:48; Status DC Meclizine HCl (Antivert) 25 mg PRN Q8HRS PRN PO DIZZINESS Last administered on 04/06/18at 17:43; Start 04/06/18 at 16:45 Betamethasone/ Clotrimazole (Lotrisone) 1 charles BID TP ; Start 04/07/18 at 13:00 Active Scripts Active Reported Lovastatin 40 Mg Tablet 1 Tab PO DAILY Aspirin 81 Mg Tab.chew 1 Tab PO HS Vitamin B Complex 1 Each Capsule 1 Each PO DAILY Allopurinol 300 Mg Tablet 1 Tab PO DAILY Omeprazole 20 Mg Capsule.dr 1 Cap PO DAILY Glipizide Er (Glipizide) 2.5 Mg Tab.er.24 1 Tab PO DAILY Hydrochlorothiazide Capsule (Hydrochlorothiazide) 12.5 Mg Capsule 25 Mg PO DAILY Losartan Potassium 50 Mg Tablet 50 Mg PO DAILY Metoprolol Tartrate 25 Mg Tablet 1 Tab PO BID Metformin Hcl 500 Mg Tablet 500 Mg PO BIDWMEALS Vitals/I & O Vital Sign - Last 24 Hours 04/06/18 04/06/18 04/06/18 04/06/18 13:48 13:54 15:00 16:15 Temp 97.8 97.8 Pulse 128 128 Resp 16 B/P (MAP) 143/66 (91) 143/66 Pulse Ox 95 O2 Delivery Room Air Room Air Room Air 04/06/18 04/06/18 04/06/18 04/07/18 19:20 20:00 21:14 03:20 Temp 98.6 97.6 98.6 97.6 Pulse 127 127 102 Resp 16 16 B/P (MAP) 110/45 (66) 110/45 104/52 (69) Pulse Ox 91 92 O2 Delivery Room Air Room Air Room Air 04/07/18 04/07/18 04/07/18 04/07/18 07:20 08:00 09:00 09:00 Temp 98.6 98.6 Pulse 94 94 94 Resp 18 B/P (MAP) 105/52 (69) 105/52 105/52 Pulse Ox 93 O2 Delivery Room Air Room Air 04/07/18 11:38 Temp 97.5 97.5 Pulse 94 Resp 18 B/P (MAP) 124/60 (81) Pulse Ox 93 O2 Delivery Room Air Intake and Output 04/06/18 04/06/18 04/07/18 15:01 23:01 07:01 Intake Total 500 ml 120 ml 400 ml Balance 500 ml 120 ml 400 ml Images MRI Brain without contrast There is no evidence of recent infarct or cytotoxic edema. Ventricular size is proportionate to sulcal spaces, mild generalized supratentorial involutional change very slightly greater of the parietal lobes.There is no significant midline shift, intraaxial mass effect, or focal abnormal extra-axial fluid collection. There is minimal T2 and FLAIR hyperintense signal abnormality of the supratentorial periventricular white matter bilaterally, couple of tiny foci of the deep white matter of the right frontal lobe. There is preservation of the major intracranial flow-voids at the skull base. The mastoid air cells are aerated. The cerebellar tonsils are normal in location. There is no significant abnormality of the pineal gland. There is partially empty sella. There is moderate sized air-fluid level of the left maxillary sinus with adjacent moderate to severe left maxillary sinus mucosal thickening, also near complete opacification of the left sphenoid sinus. There is very minimal patchy ethmoid air cell mucosal thickening. There is slightly disconjugate gaze. There is preserved marrow signal of the clivus. Small focus of nonexpansile marrow signal change right parietal calvarium may be a small hemangioma. Impression: 1. There is no evidence of recent infarct. Minimal T2 and FLAIR hyperintense signal abnormality of the supratentorial parenchyma is more commonly due to chronic microvascular ischemic disease in a patient this age. There is mild supratentorial involutional change somewhat greater of the parietal lobes. 2. There is air-fluid level in the left maxillary sinus which may be due to acute sinusitis. LEFT VENTRICLE The left ventricle is normal size. There is mild concentric left ventricular hypertrophy. The left ventricular systolic function is normal. The ejection fraction is estimated at 75%. There is normal LV segmental wall motion. Transmitral Doppler flow pattern is Grade I-abnormal relaxation pattern. RIGHT VENTRICLE The right ventricle is normal size. There is normal right ventricular wall thickness. The right ventricular systolic function is normal. ATRIA The left atrium is borderline dilated. The right atrium size is normal. The interatrial septum is intact with no evidence for an atrial septal defect or patent foramen ovale as noted on 2-D or Doppler imaging. AORTIC VALVE The aortic valve is not well visualized. Doppler and Color Flow revealed no significant aortic regurgitation. There is no significant aortic valvular stenosis. MITRAL VALVE The mitral valve is normal in structure and function. There is no evidence of mitral valve prolapse. There is no mitral valve stenosis. Doppler and Color Flow revealed no mitral valve regurgitation noted. TRICUSPID VALVE The tricuspid valve is normal in structure and function. Doppler and Color Flow revealed trace tricuspid regurgitation. There is no tricuspid valve stenosis. PULMONIC VALVE The pulmonic valve is not well visualized. Doppler and Color Flow revealed trace pulmonic valvular regurgitation. GREAT VESSELS The aortic root is normal in size. The IVC is normal in size and collapses >50% with inspiration. PERICARDIAL EFFUSION There is no evidence of significant pericardial effusion. Critical Notification Critical Value: No <Conclusion> The left ventricular systolic function is normal. The ejection fraction is estimated at 75%. There is normal LV segmental wall motion. Transmitral Doppler flow pattern is Grade I-abnormal relaxation pattern. Doppler and Color Flow revealed trace tricuspid regurgitation. There is no evidence of significant pericardial effusion. MANNY PETERSEN MD Apr 07, 2018 13:46
[2018-04-07] MEDS ORDERED: CLOT15CR5 TP (15:32)
[2018-04-07] MEDS ORDERED: MECL12.52 PO (15:32)
[2018-04-07] MEDS ORDERED: CEFU250T59 PO (15:38)
[2018-04-07 15:39] VITALS: BP 134/75
--- NOTE | 2018-04-07 15:39 | PDOC3 ---
Discharge Summary Visit Information Date of Admission: Apr 06, 2018 Date of Discharge: Apr 07, 2018 Admitting Diagnosis: Vertigo Final Diagnosis Problems Medical Problems: (1) Vertigo Status: Acute Brief Hospital Course Allergies Allergies Coded Allergies Type Severity Reaction Last Updated Verified No Known Drug Allergies 06/15/14 No Vital Signs Vital Signs Date Time Temp Pulse Resp B/P (MAP) Pulse Ox O2 Delivery O2 Flow Rate FiO2 04/07/18 11:38 97.5 94 18 124/60 (81) 93 Room Air 97.5 Lab Results Laboratory Tests Test 04/06/18 09:10 04/06/18 09:14 04/06/18 09:50 04/06/18 16:36 Urine Collection Type Unknown Urine Color Yellow Urine Clarity Clear Urine pH 5.5 Urine Specific [place]on 1.020 Urine Protein Negative mg/dL (NEG-TRACE) Urine Glucose (UA) Negative mg/dL (NEG) Urine Ketones (Stick) Negative mg/dL (NEG) Urine Blood Negative (NEG) Urine Nitrite Positive (NEG) Urine Bilirubin Negative (NEG) Urine Urobilinogen Dipstick 0.2 mg/dL (0.2 mg/dL) Urine Leukocyte Esterase Large (NEG) Urine RBC 0 /HPF (0-2) Urine WBC >40 /HPF (0-4) Urine Squamous Epithelial Cells Few /LPF Urine Bacteria Many /HPF (0-FEW) Glucose (Fingerstick) 176 mg/dL (70-99) 141 mg/dL (70-99) White Blood Count 8.9 x10^3/uL (4.0-11.0) Red Blood Count 4.20 x10^6/uL (3.50-5.40) Hemoglobin 12.7 g/dL (12.0-15.5) Hematocrit 38.7 % (36.0-47.0) Mean Corpuscular Volume 92 fL (79-100) Mean Corpuscular Hemoglobin 30 pg (25-35) Mean Corpuscular Hemoglobin Concent 33 g/dL (31-37) Red Cell Distribution Width 15.5 % (11.5-14.5) Platelet Count 177 x10^3/uL (140-400) Neutrophils (%) (Auto) 72 % (31-73) Lymphocytes (%) (Auto) 21 % (24-48) Monocytes (%) (Auto) 5 % (0-9) Eosinophils (%) (Auto) 1 % (0-3) Basophils (%) (Auto) 1 % (0-3) Neutrophils # (Auto) 6.4 x10^3uL (1.8-7.7) Lymphocytes # (Auto) 1.8 x10^3/uL (1.0-4.8) Monocytes # (Auto) 0.5 x10^3/uL (0.0-1.1) Eosinophils # (Auto) 0.1 x10^3/uL (0.0-0.7) Basophils # (Auto) 0.1 x10^3/uL (0.0-0.2) Sodium Level 137 mmol/L (136-145) Potassium Level 4.1 mmol/L (3.5-5.1) Chloride Level 98 mmol/L (98-107) Carbon Dioxide Level 24 mmol/L (21-32) Anion Gap 15 (6-14) Blood Urea Nitrogen 16 mg/dL (7-20) Creatinine 0.8 mg/dL (0.6-1.0) Estimated GFR (Cockcroft-Gault) 69.4 BUN/Creatinine Ratio 20 (6-20) Glucose Level 180 mg/dL (70-99) Calcium Level 9.9 mg/dL (8.5-10.1) Total Bilirubin 0.4 mg/dL (0.2-1.0) Aspartate Amino Transf (AST/SGOT) 55 U/L (15-37) Alanine Aminotransferase (ALT/SGPT) 61 U/L (14-59) Alkaline Phosphatase 115 U/L (46-116) Total Protein 7.1 g/dL (6.4-8.2) Albumin 3.6 g/dL (3.4-5.0) Albumin/Globulin Ratio 1.0 (1.0-1.7) Test 04/06/18 21:34 04/07/18 04:05 04/07/18 07:28 04/07/18 11:31 Glucose (Fingerstick) 164 mg/dL (70-99) 110 mg/dL (70-99) 155 mg/dL (70-99) White Blood Count 11.5 x10^3/uL (4.0-11.0) Red Blood Count 3.76 x10^6/uL (3.50-5.40) Hemoglobin 11.5 g/dL (12.0-15.5) Hematocrit 34.3 % (36.0-47.0) Mean Corpuscular Volume 91 fL (79-100) Mean Corpuscular Hemoglobin 31 pg (25-35) Mean Corpuscular Hemoglobin Concent 34 g/dL (31-37) Red Cell Distribution Width 15.7 % (11.5-14.5) Platelet Count 153 x10^3/uL (140-400) Neutrophils (%) (Auto) 94 % (31-73) Lymphocytes (%) (Auto) 1 % (24-48) Monocytes (%) (Auto) 5 % (0-9) Eosinophils (%) (Auto) 0 % (0-3) Basophils (%) (Auto) 0 % (0-3) Neutrophils # (Auto) 10.8 x10^3uL (1.8-7.7) Lymphocytes # (Auto) 0.1 x10^3/uL (1.0-4.8) Monocytes # (Auto) 0.5 x10^3/uL (0.0-1.1) Eosinophils # (Auto) 0.0 x10^3/uL (0.0-0.7) Basophils # (Auto) 0.0 x10^3/uL (0.0-0.2) Segmented Neutrophils % 81 % (35-66) Band Neutrophils % 18 % (0-9) Monocytes % 1 % (0-10) Platelet Estimate Adequate (ADEQUATE) Sodium Level 135 mmol/L (136-145) Potassium Level 3.7 mmol/L (3.5-5.1) Chloride Level 99 mmol/L (98-107) Carbon Dioxide Level 25 mmol/L (21-32) Anion Gap 11 (6-14) Blood Urea Nitrogen 17 mg/dL (7-20) Creatinine 0.9 mg/dL (0.6-1.0) Estimated GFR (Cockcroft-Gault) 60.6 Glucose Level 141 mg/dL (70-99) Calcium Level 9.0 mg/dL (8.5-10.1) Triglycerides Level 125 mg/dL (0-150) Cholesterol Level 88 mg/dL (0-200) LDL Cholesterol, Calculated 24 mg/dL (0-100) VLDL Cholesterol, Calculated 25 mg/dL (0-40) Non-HDL Cholesterol Calculated 49 mg/dL (0-129) HDL Cholesterol 39 mg/dL (40-60) Cholesterol/HDL Ratio 2.3 Laboratory Tests Test 04/06/18 16:36 04/06/18 21:34 04/07/18 04:05 04/07/18 07:28 Glucose (Fingerstick) 141 mg/dL (70-99) 164 mg/dL (70-99) 110 mg/dL (70-99) White Blood Count 11.5 x10^3/uL (4.0-11.0) Red Blood Count 3.76 x10^6/uL (3.50-5.40) Hemoglobin 11.5 g/dL (12.0-15.5) Hematocrit 34.3 % (36.0-47.0) Mean Corpuscular Volume 91 fL (79-100) Mean Corpuscular Hemoglobin 31 pg (25-35) Mean Corpuscular Hemoglobin Concent 34 g/dL (31-37) Red Cell Distribution Width 15.7 % (11.5-14.5) Platelet Count 153 x10^3/uL (140-400) Neutrophils (%) (Auto) 94 % (31-73) Lymphocytes (%) (Auto) 1 % (24-48) Monocytes (%) (Auto) 5 % (0-9) Eosinophils (%) (Auto) 0 % (0-3) Basophils (%) (Auto) 0 % (0-3) Neutrophils # (Auto) 10.8 x10^3uL (1.8-7.7) Lymphocytes # (Auto) 0.1 x10^3/uL (1.0-4.8) Monocytes # (Auto) 0.5 x10^3/uL (0.0-1.1) Eosinophils # (Auto) 0.0 x10^3/uL (0.0-0.7) Basophils # (Auto) 0.0 x10^3/uL (0.0-0.2) Segmented Neutrophils % 81 % (35-66) Band Neutrophils % 18 % (0-9) Monocytes % 1 % (0-10) Platelet Estimate Adequate (ADEQUATE) Sodium Level 135 mmol/L (136-145) Potassium Level 3.7 mmol/L (3.5-5.1) Chloride Level 99 mmol/L (98-107) Carbon Dioxide Level 25 mmol/L (21-32) Anion Gap 11 (6-14) Blood Urea Nitrogen 17 mg/dL (7-20) Creatinine 0.9 mg/dL (0.6-1.0) Estimated GFR (Cockcroft-Gault) 60.6 Glucose Level 141 mg/dL (70-99) Calcium Level 9.0 mg/dL (8.5-10.1) Triglycerides Level 125 mg/dL (0-150) Cholesterol Level 88 mg/dL (0-200) LDL Cholesterol, Calculated 24 mg/dL (0-100) VLDL Cholesterol, Calculated 25 mg/dL (0-40) Non-HDL Cholesterol Calculated 49 mg/dL (0-129) HDL Cholesterol 39 mg/dL (40-60) Cholesterol/HDL Ratio 2.3 Test 04/07/18 11:31 Glucose (Fingerstick) 155 mg/dL (70-99) Brief Hospital Course HTN Urgency Vestibular neuronitis Essential hypertension Diabetes mellitus type 2 insulin requiring Dyslipidemia UTI with Asymptomatic bacteriuria sample has epithelial cells and may be a contaminated sample. Patient has been started on Rocephin will follow the results of culture History of Present Illness History of Present Illness 77-year-old female with past medical history of hypertension diabetes, dyslipidemia who was in her usual state of health until 04/06/18 morning when she woke up and felt like she was leaning to the right and very unsteady on her feet. The patient denies any ringing in the ears sensation of fullness either no headache no sensation of the room spinning either. The patient denies slurred speech no hemiparesis and no paresthesias were noted. No recent changes to her medications either nor increased to her diabetes medications. The patient denies recent illnesses no viral infections have been reported. The patient denies emesis associated with the symptoms due to the sudden onset of her symptoms her family members got concerned and brought her to the emergency department for further evaluation and treatment. Found with SBP > 220mmHg and tachycardic into the 120s and with abnormal UA consistent with UTI. CTA showed mild bilateral carotid disease, no clot and MRI negative for infarct. ECHO: The left ventricular systolic function is normal. The ejection fraction is estimated at 75%. There is normal LV segmental wall motion. Transmitral Doppler flow pattern is Grade I-abnormal relaxation pattern. Doppler and Color Flow revealed trace tricuspid regurgitation. There is no evidence of significant pericardial effusion. No overnight events. Seen by PT, assessed as safe for living at home with all ADLs per OT. She and daughter are concerned about her UTI and blood pressure, both of which corrected with resuming meds and rocephin IV. Sent home with ceftin 2 additional days as well as referral to [facility], to schedule an appointment for a vestibular evaluation. Discharge Information Condition at Discharge: Improved Follow Up: Weeks (2) Disposition/Orders: D/C to Home Scheduled Allopurinol (Allopurinol) 300 Mg Tablet, 1 TAB PO DAILY for gout, #30 Ref 5 ( Reported) Entered as Reported by: AMRANDO SKINNER on 04/06/181405 Last Action: Continued on 04/06/181554 by SUSI VALDOVINOS MD Aspirin (Aspirin) 81 Mg Tab.chew, 1 TAB PO HS for supplement, #30 Ref 3 ( Reported) Entered as Reported by: ARMANDO SKINNER on 04/06/181405 Last Action: Continued on 04/06/181554 by SUSI VALDOVINOS MD Clotrimazole/Betamethasone Dip (Clotrimazole-Betamethasone Crm) 15 Gm Cream..g. , 1 AMADEO TP BID for Intertrigo for 7 Days, #14 Prescribed by: CURLY MOORE MD on 04/07/181531 Glipizide (Glipizide Er) 2.5 Mg Tab.er.24, 1 TAB PO DAILY for diabetes, #30 Ref 5 (Reported) Entered as Reported by: ARMANDO SKINNER on 04/06/181405 Last Action: Continued on 04/06/181554 by USSI VALDOVINOS MD Hydrochlorothiazide (Hydrochlorothiazide Capsule ) 12.5 Mg Capsule, 25 MG PO DAILY for diuretic, Ref 0 (Reported) Entered as Reported by: ARMANDO SKINNER on 04/06/181405 Last Action: Continued on 04/06/181554 by SUSI VALDOVINOS MD Losartan Potassium (Losartan Potassium) 50 Mg Tablet, 50 MG PO DAILY for HYPERTENSION, (Reported) Entered as Reported by: ARMANDO SKINNER on 04/06/181405 Last Action: Continued on 04/06/181554 by SUSI VALDOVINOS MD Lovastatin (Lovastatin) 40 Mg Tablet, 1 TAB PO DAILY for high cholesterol, #30 Ref 5 (Reported) Entered as Reported by: ARMANDO SKINNER on 04/06/181405 Last Action: Converted on 04/06/181554 by SUSI VALDOVINOS MD Metformin Hcl (Metformin Hcl) 500 Mg Tablet, 500 MG PO BIDWMEALS for ANTI- DIABETIC, Ref 0 (Reported) Entered as Reported by: ARMANDO SKINNER on 04/06/18 1400 Last Action: Converted on 04/06/181554 by SUSI VALDOVINOS MD Metoprolol Tartrate (Metoprolol Tartrate) 25 Mg Tablet, 1 TAB PO BID for htn, # 180 Ref 1 (Reported) Entered as Reported by: ARMANDO SKINNER on 04/06/181405 Last Action: Continued on 04/06/181554 by SUSI VALDOVINOS MD Omeprazole (Omeprazole) 20 Mg Capsule.dr, 1 CAP PO DAILY for gerd, #30 Ref 5 ( Reported) Entered as Reported by: ARMANDO SKINNER on 04/06/181405 Last Action: Converted on 04/06/181554 by SUSI VALDOVINOS MD Vitamin B Complex (Vitamin B Complex) 1 Each Capsule, 1 EACH PO DAILY for supplement, (Reported) Entered as Reported by: ARMANDO SKINNER on 04/06/181405 Last Action: Converted on 04/06/181554 by SUSI VALDOVINOS MD Scheduled PRN Meclizine Hcl (Meclizine Hcl) 12.5 Mg Tablet, 25 MG PO PRN Q8HRS PRN for DIZZINESS for 10 Days, #10 Prescribed by: CURLY MOOER MD on 04/07/181531 CURLY MOORE MD Apr 07, 2018 15:39
--- NOTE | 2018-04-07 16:18 | NUR ---
pt was discharged home with self-care. Daughter and son both took pt home today. Calling in three scripts to [facility] for the pt to turkey picker tomorrow. Pt was given instructions to call [facility] at number on her discahrge summary so that she may schedule her PT. wheeled pt out to the main entrance at 16:15. Sushant Kern RN
[2018-04-08] MEDS ORDERED: metFORMIN 500 MG TABLET PO SCH (17:00)
== END 2018-04-07 16:15 | disposition home or self-care (01) ==
LOC: ER 08:47 → 6 SOUTH 11:38
PROVIDERS: ADMIT Internal Medicine; ATTEND Internal Medicine
DX: R42 Dizziness and giddiness (principal); E11.9 Type 2 diabetes mellitus without complications; N39.0 Urinary tract infection, site not specified; R00.0 Tachycardia, unspecified; K21.9 Gastro-esophageal reflux disease without esophagitis; I11.9 Hypertensive heart disease without heart failure; H81.20 Vestibular neuronitis, unspecified ear; E78.5 Hyperlipidemia, unspecified; R82.71 Bacteriuria; Z79.4 Long term (current) use of insulin; I16.0 Hypertensive urgency; H83.09 Labyrinthitis, unspecified ear; Z90.710 Acquired absence of both cervix and uterus; I51.7 Cardiomegaly
CPT/HCPCS: 36415; 70450; 70496; 70498; 70551; 80048; 80053; 80061; 81001; 82962; 85007; 85025; 87086; 87186; 92610; 93005; 93306; 96361; 96374; 96375; 97161; 97165; 97535; 99284; G0378; G0379; G8987; G8988; G8989; G8996; G8997; G8998; J0696; J2270; J3490; J7040; J8597; Q9967; J7120

== ENCOUNTER → 2018-10-11 | Outpatient (CLI) | payer MEDICARE ==
[~2018-10-11] MED LIST: ALLO300T PO; ASPI-630 PO; CEFU250T59 PO; CLOT15CR5 TP; GLIP2.5T4 PO; HYDR12.575 PO; LOSA-73 PO; LOVA40TA2 PO; MECL12.52 PO; METF500T16 PO; METO25TA4 PO; OMEP20CA10 PO; VITA1CAP PO
--- NOTE | 2018-10-11 09:04 | RAD ---
DATE: 10/11/2018. EXAM: MAMMO RONDA SCREENING BILATERAL HISTORY: Routine screening. COMPARISON: Mammogram previous mammograms from 2018 and 2017. This study was interpreted with the benefit of Computerized Aided Detection (CAD). FINDINGS: Breast Density: SCATTERED The breast parenchyma shows scattered fibroglandular densities. Breast parenchyma level B. The skin and nipples are within normal limits. No suspicious calcifications, spiculated mass or area of architectural distortion. IMPRESSION: No mammographic evidence of malignancy. Stable mammogram. BI-RADS CATEGORY: 2 BENIGN FINDING(S) RECOMMENDED FOLLOW-UP: 12M 12 MONTH FOLLOW-UP PQRS compliance statement: Patient information was entered into a reminder system with a target due date for the next mammogram. Mammography is a sensitive method for finding small breast cancers, but it does not detect them all and is not a substitute for careful clinical examination. A negative mammogram does not negate a clinically suspicious finding and should not result in delay in biopsying a clinically suspicious abnormality. "Our facility is accredited by the [employer] Mammography Program."
== END | disposition home or self-care (01) ==
LOC: MAMMO 07:58
PROVIDERS: ATTEND Family Medicine
DX: Z12.31 Encounter for screening mammogram for malignant neoplasm of breast (principal); N64.89 Other specified disorders of breast
CPT/HCPCS: 77063; 77067

== ENCOUNTER → 2019-11-27 | Outpatient (CLI) | payer MEDICARE ==
[~2019-11-27] MED LIST changes: -MECL12.52 PO; +MECL12.573 PO; -OMEP20CA10 PO; +OMEP20CA16 PO
--- NOTE | 2019-11-28 10:35 | RAD ---
DATE: 11/27/2019 10:16 AM EXAM: MAMMO RONDA SCREENING BILATERAL HISTORY: Screening COMPARISON: 10/11/2018 Bilateral CC and MLO views of the breasts were performed. Bilateral breast tomosynthesis was performed in CC and MLO projections. This study was interpreted with the benefit of Computerized Aided Detection (CAD). FINDINGS: Breast Density: FATTY The Breast Parenchyma is primarily fatty replaced. Breast parenchyma level density A. No suspicious masses, microcalcifications or architectural distortion is present to suggest malignancy in either breast. The visualized axillae are unremarkable. IMPRESSION: No mammographic evidence of malignancy. BI-RADS CATEGORY: 1 NEGATIVE RECOMMENDED FOLLOW-UP: 12M 12 MONTH FOLLOW-UP Annual screening mammography is recommended, unless clinically indicated sooner based on symptoms or change in physical exam. PQRS compliance statement: Patient information was entered into a reminder system with a target due date for the next mammogram. Mammography is a sensitive method for finding small breast cancers, but it does not detect them all and is not a substitute for careful clinical examination. A negative mammogram does not negate a clinically suspicious finding and should not result in delay in biopsying a clinically suspicious abnormality. "Our facility is accredited by the [employer] Mammography Program."
== END | disposition home or self-care (01) ==
LOC: MAMMO 09:46
PROVIDERS: ATTEND Family Medicine
DX: Z12.31 Encounter for screening mammogram for malignant neoplasm of breast (principal)
CPT/HCPCS: 77063; 77067

== ENCOUNTER → 2020-12-02 | Outpatient (CLI) | payer MEDICARE ==
[~2020-12-02] MED LIST changes: -MECL12.573 PO; +MECL12.582 PO
--- NOTE | 2020-12-02 19:17 | RAD ---
DATE: 12/02/2020 EXAM: MAMMO RONDA SCREENING BILATERAL HISTORY: Screening. History of benign left biopsy in 1979. COMPARISON: Multiple prior exams dating back to 2014 This study was interpreted with the benefit of Computerized Aided Detection (CAD). Breast Density: SCATTERED The breast parenchyma shows scattered fibroglandular densities. Breast parenchyma level B. FINDINGS: No mass, suspicious calcification, or architectural distortion in either breast. IMPRESSION: No evidence of malignancy. BI-RADS CATEGORY: 1 NEGATIVE RECOMMENDED FOLLOW-UP: 12M 12 MONTH FOLLOW-UP PQRS compliance statement: Patient information was entered into a reminder system with a target due date for the next mammogram. Mammography is a sensitive method for finding small breast cancers, but it does not detect them all and is not a substitute for careful clinical examination. A negative mammogram does not negate a clinically suspicious finding and should not result in delay in biopsying a clinically suspicious abnormality. "Our facility is accredited by the [employer] Mammography Program."
== END ==
LOC: MAMMO 10:06
PROVIDERS: ATTEND Family Medicine
DX: Z12.31 Encounter for screening mammogram for malignant neoplasm of breast (principal)
CPT/HCPCS: 77063; 77067